=== PATIENT | female | born 1960 | race Caucasian/White ===

== ENCOUNTER → 2016-10-26 | Outpatient (CLI) | payer BC ==
[~2016-10-26] MED LIST: ALBUAER2 INH; ATV5X PO; FLUT0.0529 NAE; IPRASOL4 INH; PRT/40 PO; RANI300T2 PO; SNG10 PO; SYMIN160 INH; TOLT1CAP6 PO
--- NOTE | 2016-10-27 05:29 | PAP/PSG TECHNICIAN REPORT ---
[facility] Line Cook Polysomnogram Report Study name: None Report date: 10/27/2016 Study date: 10/26/2016 Referring Physician: Noah Mayes M.D. Name: JOSEPHINE, RODERICK SULEMAN Interpreting Physician: Jeb Mayes M.D. Date of : 1960 Line Cook: LATIA Bird. Sex: Female Age: 56 StudyType: PSG PAP Weight: 196 lbs Height: 56 years, Height 5' 2" Neck Circum:13.25inches BMI: 35.84 Medications: Hydrodiuril 25mg, Deltasone 10mg, Augmentin 876-125mg, Ativan 0.5mg, Singulair 10mg, Pulmicort Respules 0.5mg/2ml, Duoneb 2.5-0.5mg/3ml, Pyridium 200mg, Symbicort 80-4.5mcg/act, Zantac 300mg, Ventolin HFA 108mcg/act, Flonace 50mcg/act, Claritin 10mg Patient History Study started on room air with 4cwp cpap in room 38. 56 yr old female here tonigh tfor a new titration study. She has a HST that had an ALEX of 10.5 with hypoxemia. Her ESS=11/24. Neck circ=13.25inches. She has been using auto cpap at home for the last 4 weeks and brought her Dreamware nasal cushion system by [employer] to use for titration. Parameters Monitored NPSG: E1-M2, E2-M1, Fp1-M2, Fp2-M1, F3-M2, F4-M2, F4-M1, C3-M2, C4-M2, C4-M1, O1-M2, O2-M2, O2-M1, T3-M2, T4-M1, P3-M2, P4-M1, CHIN1, CHIN2, HR, EKG, Legs, PFLOW, SNOR, FLOW, CFLOW, Tidal Volume, THOR, ABDO, SpO2, PLTH, CPRESS, ETCO2 Wave, ETCO2, pH Sleep Architecture Sleep Stages Time at Lights Off 10:07:53 PM STAGES Time (min.) TST (%) Time at Lights On 5:24:23 AM Wake 104.0 -- Total Recording Time (TRT) 436.00 min. N1 37.5 11 Total Sleep Period (TSP) 420.5 min. N2 145.0 44 Total Sleep Time (TST) 332.0min. N3 75.5 23 Awake Time 104.0 min. REM 74.0 22 Wake after Sleep Onset 89.5 min. Sleep Efficiency (SE) 76 % Sleep Onset Latency (GREGOR) 15.0 min. Number of Stage 1 Shifts None Awakenings 29 Stage Changes 131 Number of REM periods 6 REM 74.0 22 REM Latency 234.0 min. NREM 258.0 78 Body Position Analysis Supine Right Left Side Prone Vertical Total Sleep Time (min.) 18.4 14.5 317.5 332.00 0.0 0.0 Total Sleep Time (%) 0% 4% 96% 100 0% N/A% Total Sleep Time REM (min.) 0.0 1.5 72.5 None 0.0 0.0 Total Sleep Time NREM (min.) 0.0 13.0 245.0 None 0.0 0.0 Intermittent Wake (min.) 18.4 22.2 63.4 None 0.0 0.0 Total Sleep Period (%) 1% None None None None None Arousals Myoclonus (PLM) * Events Count Index Events Count Index Spontaneous 19 3 Events Awake (PLMW) 189 109.0 Respiratory 2 0.5 Events Asleep w/ Arousal (PLMA) 44 8.0 PLM 43 8 Events Asleep w/o Arousal (PLMS) 119 21.5 Snoring 6 1 Total Asleep 163 29.5 Total 70 13 Total 352 48 Respiratory Analysis * CA OA MA CH H RERA Total Count 2 2 1 0 2 1 7 Index 0.4 0.4 0.2 0 0.4 0 1.4 Mean Duration 17.1 11.7 21.3 0.00 27.4 22.4 19.5 Longest Duration 18.7 11.9 21.3 0.00 21.3 22.4 28.0 Respiratory Event Summary Total Supine ~Supine Right Left Prone REM NREM Apneas Count 5 N/A 5 0 5 N/A 1 4 Index 0.9 N/A 1 0.0 0.9 N/A 1 1 Hypopneas (4% Desat) Count 2 N/A 2 0 2 N/A 0 2 Index 0.4 N/A 0 0.0 0.4 N/A 0.0 0.5 Apneas & All Hypopneas Count 7 N/A 7 0 7 N/A 1 6 Index 1.3 N/A 1 0 1 N/A 0.8 1.4 Respiratory Events (Slot Key Person+All Hyp+RERA) Count 7 N/A 8 0 8 N/A 1 6 Index 1.4 N/A 1 0.0 1.5 N/A 0.8 1.6 Respiratory Related Arousal Count 2 N/A 3 0 3 N/A 0 3 Index 0.5 N/A 1 0 1 N/A 0 1 Snoring Analysis Supine Right Left Prone REM NREM Total Snore duration 7.0 min Snores count N/A 25 284 N/A 6 303 309 Snore mean duration 1.4 Sec Snores index N/A 103 54 N/A 4.9 70.5 55.8 TST with snoring (%) 2.1% Desaturation Event Summary: Minimum %SpO2 Event Count Mean/Min/Max Duration(sec.) Desaturation Index % Time In Bed > 90 18 25.3 / 8.5 / 60.0 8.3 30.7 86 - 90 4 16.7 / 5.3 / 41.8 0.8 69.3 81 - 85 0 N/A 0.0 0.0 76 - 80 0 N/A 0.0 0.0 71 - 75 0 N/A 0.0 0.0 66 - 70 0 N/A 0.0 0.0 61 - 65 0 N/A 0.0 0.0 56 - 60 0 N/A 0.0 0.0 51 - 55 0 N/A 0.0 0.0 < 50 0 N/A 0.0 0.0 Total REM NREM Awake <50% 0.0 min. 0.0 min. 0.0 min. 0.0 min. 51 - 60% 0.0 min. 0.0 min. 0.0 min. 0.0 min. 61 - 70% 0.0 min. 0.0 min. 0.0 min. 0.0 min. 71 - 80% 0.0 min. 0.0 min. 0.0 min. 0.0 min. 81 - 90% 294.1 min. 68.0 min. 195.0 min. 31.1 min. 91 - 100% 130.4 min. 4.5 min. 61.4 min. 64.5 min. Average 90 89 90 91 Minimum SpO2 81 86 86 81 Desaturation Event Index 2.8 0.0 1.4 8.1 # Desat. Events below 89% 4 N/A 1 3 Time(%) with Saturation below 89% 14.1 2.4 9.8 1.9 Time(min.) with Saturation below 89% 59.7 10.1 41.5 8.1 Time (mins) REM (mins) NREM (mins) % of TST SpO2 Below 90% 4 N/A N4 46.2 SpO2 Below 88% 0 0 0 3 Heart Rate Analysis Min (bpm) Max (bpm) Average (bpm) Awake 53 141 68 NREM 49 127 61 REM 49 69 58 Overall 49 127 60 Supplemental O2 Values Minimum O2 level: None Value Start Time End Time Line Cook Comments Mrs. Henderson slept in the right, left, supine and prone positions. No cardiac arrhythmia or PLM's noted. No bruxism noted. CPAP was initiated at +4 CMH2O and up-titrated to a level of +8 CMH2O. She still had hypoxemia but was on a setting of +8CMH2O for only 96 minutes (not an OPTIMAL pressure). She brought her own mask to use for titration. She awoke to use the restroom 1 time during the night. She stated that she slept a little worse than usual. The final report will be interpreted and signed by a sleep physician. The completed physician report will then be placed in the patient medical record. Therapy Event: Therapy (cm H20) 4 5 6 8 Total Time at Pressure (min.) 204.7 36.8 95.3 99.2 TST at Pressure (min.) 117.2 35.8 82.8 96.2 # Periods 1 1 1 1 Sleep Onset (min.) 15.0 0.0 0.0 0.0 REM Onset (min.) N/A N/A 7.5 53.2 Sleep Efficiency % 57 97 86 97 Wakefulness (%) 42.7 2.7 13.1 3.0 Wakefulness (min.) 87.5 1.0 12.5 3.0 NREM 1 (%) 12.9 4.1 5.2 4.5 NREM 1 (min.) 26.5 1.5 5.0 4.5 NREM 2 (%) 32.1 29.2 21.3 48.6 NREM 2 (min.) 65.7 10.8 20.3 48.2 NREM 3 (%) 12.2 64.0 6.2 21.2 NREM 3 (min.) 25.0 23.5 6.0 21.0 REM (%) 0.0 0.0 54.0 22.7 REM (min.) 0.0 0.0 51.5 22.5 # Arousals 49 6 7 8 Arousal Index 25.1 10.1 5.1 5.0 # Snore 198 88 12 11 Snore Index 101.3 147.5 8.7 6.9 AHI 1.0 0.0 2.2 1.2 AHI Supine N/A N/A N/A N/A AHI Non-Supine 1.0 0.0 2.2 1.2 NREM AHI 1.0 0.0 5.8 0.8 REM AHI N/A N/A 0.0 2.7 RDI 1.5 0.0 2.2 1.2 # Obstructive 1 0 1 0 # Central Ap 0 0 0 2 # Mixed 0 0 1 0 # Hypopneas 1 0 1 0 RERAS 1 0 0 0 Total Respiratory Events 3 0 3 2 Time Below SpO2 89.00% (min.) 1.1 5.0 17.5 28.1 Mean NREM SpO2 (%) 90 89 89 89 Mean REM SpO2 (%) N/A N/A 89 90 Mean Sleep SpO2 (%) 90 89 89 89 Min NREM SpO2 (%) 88 88 86 87 Min REM SpO2 (%) N/A N/A 86 88 Position Supine (min.) 0.0 0.0 0.0 0.0 Position Non-supine (min.) 117.2 35.8 82.8 96.2 LM Index Sleep 58.3 23.5 13.8 10.0 LM Index NREM 58.3 23.5 13.4 9.0 LM Index REM N/A N/A 14.0 13.3 Mean Heart Rate (bpm) 65 60 58 57 Min Heart Rate (bpm) 52 54 49 49
--- NOTE | 2016-11-21 12:42 | POLYSOMNOGRAPH REPORT ---
REFERRING PERSON: Dr. Ligia Mayes. BROOMMAKING SUPERVISOR: Carissa Pruitt. Ms. Henderson is a 56-year-old female sent for a CPAP titration study. She had a home sleep test that showed an ALEX of 10.5 with hypoxemia. Her Biddle sleepiness scale score on the evening of this study is 11. BMI is 35.84. She is using a Dream[employer]ear nasal pillow mask by [employer] for her titration. Following the technical and digital specifications of the [employer] (AASM) a standard diagnostic polysomnogram was performed monitoring EEG, EOG, EMG (chin and leg deviations), oxygen saturation, body position, digital video, respiratory effort and airflow. The sleep Stage and event scoring was based on the AASM Manual for the Scoring of Sleep and Associated Events 2007 edition. Apneas are defined as a drop in the peak thermal sensor excursion by >90% of baseline for at least 10 seconds. Hypopneas were scored using the 4% oxygen desaturation rule (4A-[employer]) and a decrease in the nasal pressure excursions by >30% of baseline for at least 10 seconds. Respiratory effort-related arousal (RERA's) is defined as a sequence of breaths lasting at least 10 seconds characterized by increasing respiratory effort or flattening of the nasal pressure waveform leading to an arousal from sleep when the sequence of breaths does not meet criteria for an apnea or hypopnea. Apnea Hypopnea index (AHI) is defined as the number of apneas and hypopneas occurring in an hour of sleep. Respiratory disturbance index (RDI) is defined as the number of apneas, hypopneas, and RERA's occurring in an hour of sleep. Ms. Kinney total sleep period time was 420.5 minutes. Total sleep time was 332 minutes. Sleep efficiency was 76%. Latency to sleep onset was 15 minutes with wake after sleep onset of 89.5 minutes. She spent 11% of that time in N1 sleep, 44% in N2 sleep and 23% in N3 sleep. REM latency was 234 minutes. Total REM sleep time was 74 minutes or 22% of total sleep time. There were 70 cortical arousals from sleep. 19 of these arousals were spontaneous, 2 were due to respiratory events, 43 were due to periodic limb movements and 6 were due to snoring. There were 163 periodic limb movements noted on this test. Limb movement index was 29.5. Limb movement with arousal index was 8.0. During this titration, there were 2 central apneas, 2 obstructive apneas and 1 mixed apnea. There were 2 hypopneas and 1 RERA. Apnea-hypopnea index was 1.3. 309 snoring events were recorded. Total sleep time with snoring was 2.1%. Mean saturation was 90%. Lowest recorded saturation was 81%. Saturations were less than 89% for 59.7 minutes of recorded time. There was no cardiac ectopy noted on this study. Heart rates ranged from a low of 49 beats per minute to a high of 127 beats per minute during sleep. This patient was titrated from a CPAP pressure of 4 to a CPAP pressure of 8 over the course of the night. Increasing pressures were needed to prevent apneas, hypopneas and arousals. She was observed on a pressure of 8 for 96.2 minutes of recorded time. 22.5 of those minutes were spent in non-supine REM sleep. AHI and RDI on this pressure were both 1.2. However, she continued to have nocturnal hypoxemia. Saturations were less than 89 for 28.1 minutes of recorded time. IMPRESSION AND PLAN: Suboptimal CPAP titration study in this patient with known obstructive sleep apnea. I would recommend that she be placed on CPAP at a pressure of 8. It appears that she will also need oxygen supplementation. This patient should have an NPO on CPAP at 8 to determine whether or not she would require oxygen supplementation. This could be added if nocturnal hypoxemia is confirmed.
== END | disposition home or self-care (01) ==
LOC: C.NEUR 20:00
PROVIDERS: ATTEND Family Medicine
DX: G47.33 Obstructive sleep apnea (adult) (pediatric) (principal); G47.34 Idiopathic sleep related nonobstructive alveolar hypoventilation

== ENCOUNTER 2020-05-11 13:15 | Inpatient (IN) ==
[2020-05-11] MEDS ORDERED: DEXAMETHASONE SOD INJ 10 MG/ML VIAL IV ONE (14:23)
--- NOTE | 2020-05-11 14:52 | Emergency Department Note ---
History of Present Illness General Chief complaint: Illness Stated complaint: +COVID,SENT FOR CXR,HX OF LUNG ISSUES Time Seen by Provider: 05/11/20 13:54 History of Present Illness Patient is a 59-year-old female with past medical history significant for asthma, allergies, GERD, and overactive bladder, who presents the emergency department for evaluation of shortness of breath that started yesterday after being diagnosed with Covid 2 weeks ago. Patient relates that her symptoms started around 04/24, with sinus and nasal congestion, headache, fatigue, nausea, vomiting and diarrhea. She thought that she had a sinus infection. She tested positive for Covid on 04/29. She has been isolating at home. Other than ongoing nausea, anorexia and diarrhea, she has been feeling well until yesterday. She does have a history of asthma, has been using her Symbicort and Ventolin during her illness. Yesterday she began to notice a dry, nonproductive cough, and increased shortness of breath. She does have a pulse ox probe at home, she has been monitoring her pulse ox during the course of her illness, and started to notice oxygen saturations running in the low 90s to upper 80s. The lowest reading she had at home was 85%. She does have a CPAP machine but has not been wearing it since her illness, she was told that she needs new tubing from the device company. She does not have home oxygen. The patient called her primary care provider and had a telephone visit with them today, it was their recommendation that she come to the hospital for evaluation, as she may be "dehydrated, and need a chest x-ray." The patient has not had any fevers. She denies any chest pain. She does report a history of an asthma exacerbation with respiratory failure which required intubation in 2014. Home Medications Medication Instructions Recorded Confirmed Type albuterol sulfate 2 puff INHALATION QID PRN 05/11/20 05/11/20 History budesonide-formoterol [Symbicort] 2 puff INHALATION AMPM 05/11/20 05/11/20 History famotidine 0 mg PO DAILY 05/11/20 05/11/20 History lorazepam 0.5 mg PO TID PRN 05/11/20 05/11/20 History montelukast 10 mg PO QPM 05/11/20 05/11/20 History Allergies Allergy/AdvReac Type Severity Reaction Status Date / Time Sulfa (Sulfonamide Allergy Mild hives Verified 05/11/20 15:23 Antibiotics) Past Med/Surg History Medical History (Updated 05/11/20 @ 17:11 by Campos Lovett) Asthma Environmental and seasonal allergies GERD (gastroesophageal reflux disease) Overactive bladder PNA (pneumonia) Respiratory arrest Respiratory failure, acute Surgical History (Updated 05/11/20 @ 14:51 by Campos Lovett) History of cholecystectomy Social History Smoking Status: Former smoker Tobacco Type: Cigarettes Current Living Situation: Alone current occupational status: employed Feels Safe at Home: Yes Review of Systems A total of 10 systems reviewed and were otherwise negative Physical Exam Vital Signs Vital Signs - 24 hr 05/11/20 13:47 05/11/20 14:30 05/11/20 15:28 Temperature 36.6 C Temperature Source Temporal Artery Scan Pulse Rate 75 72 Pulse Rate from SpO2 Sensor 71 Respiratory Rate 20 22 Respiratory Effort / Characteristics Non-Labored Spontaneous Respiratory Depth Normal Respiratory Pattern Regular Blood Pressure 139/84 Blood Pressure Mean 102 Blood Pressure Position Sitting Pulse Oximetry 88 L 88 L 92 Oxygen Delivery Method Room Air Room Air Nasal Cannula Sepsis Recent Fever Within 48 Hours No Sepsis New/Unexplained Change in Mental Status N/A Sepsis Action Taken by Nursing No Action Required Oxygen Flow Rate - Titration 2 Pulse Oximetry Post Tiitration 96 05/11/20 15:30 05/11/20 15:42 05/11/20 15:43 Temperature Temperature Source Pulse Rate 71 76 75 Pulse Rate from SpO2 Sensor 71 76 74 Respiratory Rate 20 19 17 Respiratory Effort / Characteristics Respiratory Depth Respiratory Pattern Blood Pressure 150/75 H Blood Pressure Mean 94 Blood Pressure Position Pulse Oximetry 94 93 92 Oxygen Delivery Method Sepsis Recent Fever Within 48 Hours Sepsis New/Unexplained Change in Mental Status Sepsis Action Taken by Nursing Oxygen Flow Rate - Titration Pulse Oximetry Post Tiitration 05/11/20 16:00 05/11/20 16:30 05/11/20 17:00 Temperature Temperature Source Pulse Rate 72 78 72 Pulse Rate from SpO2 Sensor 71 78 73 Respiratory Rate 22 17 23 Respiratory Effort / Characteristics Respiratory Depth Respiratory Pattern Blood Pressure 144/82 H 136/74 Blood Pressure Mean 96 83 Blood Pressure Position Pulse Oximetry 94 95 93 Oxygen Delivery Method Sepsis Recent Fever Within 48 Hours Sepsis New/Unexplained Change in Mental Status Sepsis Action Taken by Nursing Oxygen Flow Rate - Titration Pulse Oximetry Post Tiitration CONSTITUTIONAL: Patient is a well-appearing 59-year-old female who is awake and alert and sitting semiupright on the gurney in no acute distress. Oxygen saturation on room air was 88% in triage, she is 96% on 2 L by nasal cannula. EYES: Pupils equal, round, reactive to light and accommodation. EOMs intact without nystagmus. Sclera are anicteric. ENT: Tympanic membranes intact, with normal landmarks. External canals are clear. Oral and nasopharynx are clear. Mucous membranes are moist, no lesions, tongue and gums appear normal. NECK: No bruits auscultated. Supple without lymphadenopathy. No thyromegaly. No meningeal signs. Full active range of motion without discomfort. CARDIOVASCULAR: Regular rate and rhythm, with normal S1 and S2, no murmur or gallop or rub is heard. Peripheral pulses easy to palpable. RESPIRATORY: Breath sounds equal and clear to auscultation without wheezes, rales, or rhonchi heard. Full and equal chest expansion without accessory muscle use or retractions. GI: Bowel sounds are present. Abdomen is soft, nontender, nondistended. No organomegaly. No pulsatile masses. No guarding or rebound. MUSCULOSKELETAL: Full range of motion of extremities x 4 with good strength. No cyanosis, edema, joint tenderness or swelling. No deformity. INTEGUMENTARY: No lesions or rash, normal skin turgor. NEUROLOGICAL: Alert, oriented, and cooperative. Cranial nerves, sensation and strength grossly intact. Pupils round, equal, and react to light, EOMs are full. LYMPH: No lymphadenopathy. Course Course The patient was seen and assessed as above. Old records were reviewed. She presents the emergency department for increased shortness of breath and low oxygen saturations at home after being diagnosed with Covid 2 weeks ago. She notes a history of asthma as well. On exam, she is hypoxic, requiring 2 L of oxygen by nasal cannula. Patient history and presentation were reviewed with Dr. Rodriguez and ED work-up was agreed upon. IV lock was initiated. Laboratory studies were collected. She was hydrated with normal saline solution. She was treated with Decadron 6 mg IV. CBC with differential, sed rate, coags, D-dimer, CMP, lactate, magnesium, troponin, C-reactive protein, pro calcitonin and urinalysis were ordered. Chest x-ray and chest CT were performed. EKG was performed and was as noted below. Laboratory studies noted a normal white count of 8400. Bandemia noted, no left shift. She is not anemic. Sed rate minimally elevated at 33, CRP 7.09. Coags are within normal limits. D-dimer is the upper limits of normal at 450. Electrolytes are without significant abnormality. Renal functions are normal. Transaminases are not elevated. Troponin is negative x1. Procalcitonin is within normal limits. Urine is clear. Lactic acid was hemolyzed and is recollected. It is pending at the time of dictation. Chest x-ray notes mixed interstitial and alveolar opacities of the mid and lower lung zones consistent with a multifocal pneumonia. Chest CT is negative for PE, notes mild emphysematous changes, and moderate multifocal groundglass airspace space opacities consistent with a viral pneumonia. Stable pulmonary nodules are noted. Laboratory and diagnostic imaging studies were reviewed with attending physician, and discussed with the patient. She was reassessed multiple times via telephone during her ED stay. ED work-up was discussed with her at length. Admission/observation was discussed with her due to her underlying lung disease, and hypoxia. She was in agreement. Consultation was placed with the [facility]. Patient was discussed with PHOEBE Avila, and will be evaluated by their team for further care. Administered Medications Discontinued Medications Dexamethasone (Dexamethasone Sod Inj 10 Mg/Ml Vial) 6 mg IV NOW ONE Stop: 05/11/20 14:24 Last Admin: 05/11/20 15:39 Dose: 6 mg Documented by: [id number] Sodium Chloride (Nss 1000ml) 1,000 mls @ 999 mls/hr IV .Q1H1M BECKA Stop: 05/11/20 17:11 Last Admin: 05/11/20 16:52 Dose: 999 mls/hr Documented by: [id number] Ioversol (Optiray 320 125ml) 120 ml IV ONCE ONE Stop: 05/11/20 16:34 Last Admin: 05/11/20 16:33 Dose: 120 ml Documented by: [id number] Medical Decision Making Differential Diagnosis Differential diagnosis includes acute myocardial infarction, acute coronary syndrome, myocarditis, pericarditis, pulmonary embolism, pneumonia, pneumothorax, cardiomyopathy, congestive heart failure, anemia, COPD/asthma ex acerbation, bronchitis, pleurisy, among others. Medical Records Attestation: I reviewed the patient's medical records. Home Medications Current Medication List: was personally reviewed by me Laboratory Data Attestation: I reviewed the patient's lab results. Result diagrams: 05/11/20 15:25 05/11/20 15:25 Lab Results 05/11/20 05/11/20 05/11/20 Range/Units 15:25 15:25 15:25 WBC 8.46 (4.8-10.8) K/uL RBC 4.60 (4.2-5.4) M/uL Hgb 14.4 (12.0-16.0) g/dL Hct 41.7 (37-47) % MCV 90.7 (80-100) fL MCH 31.3 (25-34) pg MCHC 34.5 (32-36) g/dL RDW Std Deviation 46.2 (36.4-46.3) fL RDW Coeff of Norma 14.0 (11.5-14.5) % Plt Count 306 (130-400) K/uL MPV 11.9 H (7.4-10.4) fL Immature Gran % (Auto) 0.4 % Neut % (Auto) 68.8 % Lymph % (Auto) 19.7 % [place] % (Auto) 10.5 % Eos % (Auto) 0.4 % Baso % (Auto) 0.2 % Neut # (Auto) 5.82 (1.4-6.5) K/uL Lymph # (Auto) 1.67 (1.2-3.4) K/uL [place] # (Auto) 0.89 H (0.11-0.59) K/uL Eos # (Auto) 0.03 (0-0.5) K/uL Baso # (Auto) 0.02 (0-0.2) K/uL Immature Gran # (Auto) 0.03 H (0.00-0.02) K/uL ESR (0-21) mm/hr PT 10.2 (9.0-12.0) Seconds INR 1.0 (0.9-1.1) APTT 29.6 (21.0-31.0) Seconds PTT Ratio 1.1 D-Dimer 450 (0-500) ug/L FEU Sodium 135 L (136-145) mmol/L Potassium 4.0 (3.5-5.1) mmol/L Chloride 101 (98-107) mmol/L Carbon Dioxide 30 (21-32) mmol/L Anion Gap 4.0 (3-11) BUN 11 (7-18) mg/dl Creatinine 0.70 (0.6-1.2) mg/dl Est Cr Clr Drug Dosing 89.3 ml/min Est GFR ( Amer) 108.4 Est GFR (Non-Af Amer) 93.5 BUN/Creatinine Ratio 16.1 (10-20) Glucose 93 (70-99) mg/dl Lactate (0.4-2.0) mmol/L Calcium 9.0 (8.5-10.1) mg/dl Magnesium 1.9 (1.8-2.4) mg/dl Total Bilirubin 0.4 (0.2-1) mg/dl AST 35 (15-37) U/L ALT 53 (12-78) U/L Alkaline Phosphatase 96 (45-117) U/L Troponin I < 0.015 (0-0.045) ng/ml C-Reactive Protein 7.09 H (0-0.29) mg/dl Total Protein 7.5 (6.4-8.2) gm/dl Albumin 3.3 L (3.4-5.0) gm/dl Globulin 4.2 H (2.5-4.0) gm/dl Albumin/Globulin Ratio 0.8 L (0.9-2) Procalcitonin (0-0.5) ng/ml Urine Color Urine Appearance (Clear) Urine pH (4.5-7.5) Ur Specific [place] (1.000-1.030) Urine Protein (Negative) Urine Glucose (UA) (Negative) Urine Ketones (Negative) Urine Blood (Negative) Urine Nitrite (Negative) Urine Bilirubin (Negative) Urine Urobilinogen (Negative) Ur Leukocyte Esterase (Negative) Blood Type Antibody Screen 05/11/20 05/11/20 05/11/20 Range/Units 15:25 15:25 15:25 WBC (4.8-10.8) K/uL RBC (4.2-5.4) M/uL Hgb (12.0-16.0) g/dL Hct (37-47) % MCV (80-100) fL MCH (25-34) pg MCHC (32-36) g/dL RDW Std Deviation (36.4-46.3) fL RDW Coeff of Norma (11.5-14.5) % Plt Count (130-400) K/uL MPV (7.4-10.4) fL Immature Gran % (Auto) % Neut % (Auto) % Lymph % (Auto) % [place] % (Auto) % Eos % (Auto) % Baso % (Auto) % Neut # (Auto) (1.4-6.5) K/uL Lymph # (Auto) (1.2-3.4) K/uL [place] # (Auto) (0.11-0.59) K/uL Eos # (Auto) (0-0.5) K/uL Baso # (Auto) (0-0.2) K/uL Immature Gran # (Auto) (0.00-0.02) K/uL ESR (0-21) mm/hr PT (9.0-12.0) Seconds INR (0.9-1.1) APTT (21.0-31.0) Seconds PTT Ratio D-Dimer (0-500) ug/L FEU Sodium (136-145) mmol/L Potassium (3.5-5.1) mmol/L Chloride (98-107) mmol/L Carbon Dioxide (21-32) mmol/L Anion Gap (3-11) BUN (7-18) mg/dl Creatinine (0.6-1.2) mg/dl Est Cr Clr Drug Dosing ml/min Est GFR ( Amer) Est GFR (Non-Af Amer) BUN/Creatinine Ratio (10-20) Glucose (70-99) mg/dl Lactate (0.4-2.0) mmol/L Calcium (8.5-10.1) mg/dl Magnesium (1.8-2.4) mg/dl Total Bilirubin (0.2-1) mg/dl AST (15-37) U/L ALT (12-78) U/L Alkaline Phosphatase (45-117) U/L Troponin I (0-0.045) ng/ml C-Reactive Protein (0-0.29) mg/dl Total Protein (6.4-8.2) gm/dl Albumin (3.4-5.0) gm/dl Globulin (2.5-4.0) gm/dl Albumin/Globulin Ratio (0.9-2) Procalcitonin < 0.05 (0-0.5) ng/ml Urine Color Urine Appearance (Clear) Urine pH (4.5-7.5) Ur Specific [place] (1.000-1.030) Urine Protein (Negative) Urine Glucose (UA) (Negative) Urine Ketones (Negative) Urine Blood (Negative) Urine Nitrite (Negative) Urine Bilirubin (Negative) Urine Urobilinogen (Negative) Ur Leukocyte Esterase (Negative) Blood Type O Positive Antibody Screen NEGATIVE 05/11/20 05/11/20 Range/Units 15:25 15:25 WBC (4.8-10.8) K/uL RBC (4.2-5.4) M/uL Hgb (12.0-16.0) g/dL Hct (37-47) % MCV (80-100) fL MCH (25-34) pg MCHC (32-36) g/dL RDW Std Deviation (36.4-46.3) fL RDW Coeff of Norma (11.5-14.5) % Plt Count (130-400) K/uL MPV (7.4-10.4) fL Immature Gran % (Auto) % Neut % (Auto) % Lymph % (Auto) % [place] % (Auto) % Eos % (Auto) % Baso % (Auto) % Neut # (Auto) (1.4-6.5) K/uL Lymph # (Auto) (1.2-3.4) K/uL [place] # (Auto) (0.11-0.59) K/uL Eos # (Auto) (0-0.5) K/uL Baso # (Auto) (0-0.2) K/uL Immature Gran # (Auto) (0.00-0.02) K/uL ESR 33 H (0-21) mm/hr PT (9.0-12.0) Seconds INR (0.9-1.1) APTT (21.0-31.0) Seconds PTT Ratio D-Dimer (0-500) ug/L FEU Sodium (136-145) mmol/L Potassium (3.5-5.1) mmol/L Chloride (98-107) mmol/L Carbon Dioxide (21-32) mmol/L Anion Gap (3-11) BUN (7-18) mg/dl Creatinine (0.6-1.2) mg/dl Est Cr Clr Drug Dosing ml/min Est GFR ( Amer) Est GFR (Non-Af Amer) BUN/Creatinine Ratio (10-20) Glucose (70-99) mg/dl Lactate (0.4-2.0) mmol/L Calcium (8.5-10.1) mg/dl Magnesium (1.8-2.4) mg/dl Total Bilirubin (0.2-1) mg/dl AST (15-37) U/L ALT (12-78) U/L Alkaline Phosphatase (45-117) U/L Troponin I (0-0.045) ng/ml C-Reactive Protein (0-0.29) mg/dl Total Protein (6.4-8.2) gm/dl Albumin (3.4-5.0) gm/dl Globulin (2.5-4.0) gm/dl Albumin/Globulin Ratio (0.9-2) Procalcitonin (0-0.5) ng/ml Urine Color Yellow Urine Appearance Clear (Clear) Urine pH 6.5 (4.5-7.5) Ur Specific [place] 1.019 (1.000-1.030) Urine Protein Negative (Negative) Urine Glucose (UA) Negative (Negative) Urine Ketones Negative (Negative) Urine Blood Negative (Negative) Urine Nitrite Negative (Negative) Urine Bilirubin Negative (Negative) Urine Urobilinogen Negative (Negative) Ur Leukocyte Esterase Negative (Negative) Blood Type Antibody Screen Imaging Data Attestation: I personally reviewed and interpreted this imaging study as follows: Radiologist's Impression: XR chest 1V portable HISTORY: 59 years-old Female COVID, ASTHMA, SOB acute shortness of breath. COVID Positive. COMPARISON: Chest radiograph 09/29/2014 TECHNIQUE: Portable AP view of the chest FINDINGS: Cardiac silhouette is mildly enlarged, unchanged. No pneumothorax, or large pleural effusion. Intermixed interstitial and alveolar opacities are noted within the mid and lower lung zones. Degenerative changes of the shoulders and spine. IMPRESSION: Mixed interstitial and alveolar opacities of the mid and lower lung zones are suggestive of multifocal pneumonia. CHEST CTA for PULMONARY ARTERIES CT DOSE: 523.12 mGycm HISTORY: COVID +, ASTHMA, shortness of breath, HYPOXIC TECHNIQUE: Multiaxial CT images of the chest were performed following the intravenous administration of contrast to evaluate the pulmonary arteries. Maximal intensity projection images were also obtained. A dose lowering technique was utilized adhering to the principles of ALARA. COMPARISON STUDY: Chest CTA 08/01/2014. FINDINGS: Normal caliber thoracic aorta with no evidence for dissection. No pleural or pericardial effusions. The heart is normal in size. No filling defects within the pulmonary arteries to suggest pulmonary embolus. Mild mediastinal bilateral hilar lymphadenopathy. This is likely reactive. Limited views of the upper abdomen demonstrate normal liver and spleen. Normal esophagus. No fractures within the visualized osseous structures. No pneumothorax. The central airways are patent. Mild emphysema. Moderate multifocal patchy groundglass airspace opacities are seen scattered throughout the lungs. This most pronounced within the mid to lower lung zones. There is a 6 mm nodule within the right lower lobe on image 102. This previously measured 5 mm. Stable 4 mm nodule within the left lower lobe on image 111. Additional subcentimeter nodules in the prior studies are likely obscured by the groundglass airspace opacities. IMPRESSION: 1. No evidence for pulmonary embolus. 2. Moderate multifocal groundglass airspace opacities consistent with a viral pneumonia. 3. Mild emphysema. 4. A few subcentimeter pulmonary nodules. Dominant nodule within the right lower lobe measures 6 mm. This previously measured 5 mm. Recommend one year chest CT follow-up to ensure stability. ECG Data Attestation: I personally reviewed and interpreted this ECG as follows: Indication: + SOB/dyspnea Rate (beats per minute): 70 Rhythm: + normal sinus ECG Loving: + Normal ECG ST segments: + Normal ST segments; no ST elevation Comparison ECG Date: from (July 2014) Change: no significant change MDM Narrative See ED Course. Impression & Plan Pneumonia due to 2019 novel coronavirus, Hypoxia Discharge Plan Visit Data Chief Complaint: Illness Stated Complaint: +COVID,SENT FOR CXR,HX OF LUNG ISSUES ED Provider: Bryon Rodriguez ED Midlevel Provider: Campos Lovett Discharge Problem: Pneumonia due to 2019 novel coronavirus, Hypoxia Patient Disposition: Being Evaluated by Hospitalist Forms Stand Alone Forms: My [facility] Prescriptions Prescriptions: No Action montelukast 10 mg tablet 10 mg PO QPM RF: 0 albuterol sulfate 90 mcg/actuation Hfa Aerosol Inhaler 2 puff INHALATION QID PRN (Reason: Shortness Of Breath Or Wheezing) RF: 0 budesonide-formoterol [Symbicort] 160-4.5 mcg/actuation HFA aerosol inhaler 2 puff INHALATION AMPM RF: 0 lorazepam 0.5 mg tablet 0.5 mg PO TID PRN (Reason: Anxiety) RF: 0 famotidine 10 mg Tablet 0 mg PO DAILY RF: 0 Referrals Referrals: Kyara Cota DO [Primary Care Provider] -
--- NOTE | 2020-05-11 15:34 | XRay Report ---
XR chest 1V portable HISTORY: 59 years-old Female COVID, ASTHMA, SOB acute shortness of breath. COVID Positive. COMPARISON: Chest radiograph 09/29/2014 TECHNIQUE: Portable AP view of the chest FINDINGS: Cardiac silhouette is mildly enlarged, unchanged. No pneumothorax, or large pleural effusion. Intermi xed interstitial and alveolar opacities are noted within the mid and lower lung zones. Degenerative c hanges of the shoulders and spine. IMPRESSION: Mixed interstitial and alveolar opacities of the mid and lower lung zones are suggestive of multifocal pneumonia. ACT 112: Negative or not required by law. The above report was generated using voice recognition software. It may contain grammatical, syntax o r spelling errors. Electronically signed by: Adrien Gil M.D. 05/11/2020 3:33 PM
[2020-05-11 15:45] LABS: Appearance Urine Clear (Clear); Bilirubin Urine Negative (Negative); Blood Urine Negative (Negative); Color Urine Yellow; Glucose Urine UA Negative (Negative); Ketones Urine Negative (Negative); Leukocyte Esterase Urine Negative (Negative); Nitrite Urine Negative (Negative); Protein Urine Negative (Negative); Specific Gravity Urine 1.019 (1.000-1.030); Urobilinogen Urine Negative (Negative); pH Urine 6.5 (4.5-7.5)
[2020-05-11 15:51] LABS: D Dimer 450 ug/L FEU (0-500); Partial Thromboplastin Ratio 1.1; Partial Thromboplastin Time 29.6 Seconds (21.0-31.0); Prothrombin Time 10.2 Seconds (9.0-12.0)
[2020-05-11 15:56] LABS: Basophils # (auto) 0.02 K/uL (0-0.2); Basophils % (auto) 0.2 %; Eosinophils # (auto) 0.03 K/uL (0-0.5); Eosinophils % (auto) 0.4 %; Hematocrit (blood only) 41.7 % (37-47); Hemoglobin 14.4 g/dL (12.0-16.0); Immature Granulocytes # (auto) 0.03 K/uL (0.00-0.02); Immature Granulocytes % (auto) 0.4 %; Lymphocytes # (auto) 1.67 K/uL (1.2-3.4); Lymphocytes % (auto) 19.7 %; Mean Corpuscular Hemoglobin 31.3 pg (25-34); Mean Corpuscular Hgb Conc 34.5 g/dL (32-36); Mean Corpuscular Volume 90.7 fL (80-100); Mean Platelet Volume 11.9 fL (7.4-10.4); Monocytes # (auto) 0.89 K/uL (0.11-0.59); Monocytes % (auto) 10.5 %; Neutrophils # (auto) 5.82 K/uL (1.4-6.5); Neutrophils % (auto) 68.8 %; Platelet Count 306 K/uL (130-400); RDW Standard Deviation 46.2 fL (36.4-46.3); White Blood Count 8.46 K/uL (4.8-10.8)
[2020-05-11] MEDS ORDERED: SODIUM CHLORIDE 0.9% 1000ML 1,000 ML IV SCH ×2 (16:11→16:15)
[2020-05-11 16:20] LABS: Alanine Aminotransferase 53 U/L (12-78); Albumin Globulin Ratio 0.8 (0.9-2); Albumin Level 3.3 gm/dl (3.4-5.0); Alkaline Phosphatase 96 U/L (45-117); BUN Creatinine Ratio 16.1 (10-20); Bilirubin,Total 0.4 mg/dl (0.2-1); Blood Urea Nitrogen 11 mg/dl (7-18); C Reactive Protein 7.09 mg/dl (0-0.29); Carbon Dioxide 30 mmol/L (21-32); Chloride 101 mmol/L (98-107); Creatinine Clr Calc Pharmacy 89.3 ml/min; Est GFR (African American) 108.4; Est GFR (Non-African American) 93.5; Globulin 4.2 gm/dl (2.5-4.0); Glucose 93 mg/dl (70-99); Sodium 135 mmol/L (136-145); Total Protein 7.5 gm/dl (6.4-8.2); Troponin I < 0.015 ng/ml (0-0.045)
[2020-05-11] MEDS ORDERED: OPTIRAY 320 125ml IV ONE (16:33)
[2020-05-11 16:36] LABS: Aspartate Aminotransferase 35 U/L (15-37); Magnesium 1.9 mg/dl (1.8-2.4)
--- NOTE | 2020-05-11 16:55 | CT Scan Report ---
CHEST CTA for PULMONARY ARTERIES CT DOSE: 523.12 mGycm HISTORY: COVID +, ASTHMA, shortness of breath, HYPOXIC TECHNIQUE: Multiaxial CT images of the chest were performed following the intravenous administration of contrast to evaluate the pulmonary arteries. Maximal intensity projection images were also obtaine d. A dose lowering technique was utilized adhering to the principles of ALARA. COMPARISON STUDY: Chest CTA 08/01/2014. FINDINGS: Normal caliber thoracic aorta with no evidence for dissection. No pleural or pericardial ef fusions. The heart is normal in size. No filling defects within the pulmonary arteries to suggest pul monary embolus. Mild mediastinal bilateral hilar lymphadenopathy. This is likely reactive. Limited vi ews of the upper abdomen demonstrate normal liver and spleen. Normal esophagus. No fractures within t he visualized osseous structures. No pneumothorax. The central airways are patent. Mild emphysema. Mo derate multifocal patchy groundglass airspace opacities are seen scattered throughout the lungs. This most pronounced within the mid to lower lung zones. There is a 6 mm nodule within the right lower lo be on image 102. This previously measured 5 mm. Stable 4 mm nodule within the left lower lobe on imag e 111. Additional subcentimeter nodules in the prior studies are likely obscured by the groundglass a irspace opacities. IMPRESSION: 1. No evidence for pulmonary embolus. 2. Moderate multifocal groundglass airspace opacities consistent with a viral pneumonia. 3. Mild emphysema. 4. A few subcentimeter pulmonary nodules. Dominant nodule within the right lower lobe measures 6 mm. This previously measured 5 mm. Recommend one year chest CT follow-up to ensure stability. ACT 112: Negative or not required by law. Electronically signed by: Nestor Hudson M.D. 05/11/2020 4:54 PM
[2020-05-11] MEDS ORDERED: BENZONATATE 100 MG CAPSULE PO STA (17:46)
--- NOTE | 2020-05-11 17:56 | History & Physical Report ---
Date of Service May 11, 2020 Assessment & Plan (1) Pneumonia due to 2019 novel coronavirus: (2) Hypoxia: This is a 59-year-old female who has significant past medical history of COPD/asthma, TAMMI on CPAP, seasonal allergies, anxiety, pulmonary nodule, history of respiratory failure requiring ventilation secondary to pneumonia who presents to ED secondary to shortness of breath and chest tightness x2 days. Ddimer 450 ESR 33 CRP 7.09 Procalcitonin < 0.05 Chest CTA/CXR: Moderate multifocal groundglass airspace opacities consistent with a viral pneumonia. IV dexamethasone 6mg daily (up to 10 days) Remdesevir 200mg x 1 now; 100mg daily x 4 days Given duration of illness start empiric tx for CAP with oral doxycycline 100mg bid and Rocephin 2g daily convalescent plasma discussed - given duration of illness pt wishes to not pursue this option monitor renal fxn/lfts incentive spirometry encourage self proning q2h continue symbicort, prn albuterol lovenox for dvt ppx (3) COPD (chronic obstructive pulmonary disease): continue symbicort, prn albuterol tx as above (4) Pulmonary nodule, right: repeat CT in 1 year, currently dominant nodule 5mm, previously 6mm hx of tobacco abuse (5) DVT prophylaxis: SQ Lovenox 40mg Q12 Disposition: admit to med/surg Follow up: PCP Dr. Cota upon discharge I, Haja Machado MD, seen and examined the pt, and edited the note above. Care coordinated with Nelia Forbes PA-C. History of Present Illness Chief Complaint: Shortness of breath and chest tightness x1 day. Primary Care Provider: Kyara Cota DO This is a 59-year-old female who has significant past medical history of COPD/asthma, TAMMI on CPAP, seasonal allergies, anxiety, pulmonary nodule, history of respiratory failure requiring ventilation secondary to pneumonia who presents to ED secondary to shortness of breath and chest tightness x1 day. Patient tested positive for novel coronavirus on 04/29/2020. Unsure how she contracted virus as, "I have been taking all the precautions." Sx started around 04/24/20. For the past 3 weeks she has been experiencing symptoms of fatigue, sinus congestion, persistent headache, nausea and diarrhea. Yesterday she developed dry cough, increasingly shortness of breath and chest tightness. Throughout illness she has been compliant with Symbicort. Just yesterday she started using her Ventolin at the recommendation of PCP. She denies any fever, chills, sweats, lightheadedness, dizziness, syncope, chest pain, palpitations, hemoptysis, emesis, abdominal pain, dysuria, increased urgency or frequency with urination, melena or hematochezia. Overall her appetite has been, "so-so." Denies loss of taste or smell. Her cough is dry. She has been using Mucinex [id number] for cough and APAP/ibuprofen for headache. She does have pulse ox at home and has noticed her o2 sats in high 80s, low 90s today. Her lowest reading was 85%. She does have TAMMI but has been intolerant to CPAP due to sinus congestion and malfunction of equipment. In ED chest x-ray and chest CTA revealed multifocal pneumonia. She was started on IV dexamethasone 6 mg. She is requiring 2 L of O2 via NC. Allergies Allergy/AdvReac Type Severity Reaction Status Date / Time Sulfa (Sulfonamide Allergy Mild hives Verified 05/11/20 15:23 Antibiotics) Home Medications Medication Instructions Recorded Confirmed Type albuterol sulfate 2 puff INHALATION QID PRN 05/11/20 05/11/20 History budesonide-formoterol [Symbicort] 2 puff INHALATION AMPM 05/11/20 05/11/20 History famotidine 20 mg PO DAILY 05/11/20 05/11/20 History lorazepam 0.5 mg PO TID PRN 05/11/20 05/11/20 History montelukast 10 mg PO QPM 05/11/20 05/11/20 History Past Med/Surg History Medical History (Updated 05/11/20 @ 18:07 by Nelia Forbes PA-C) Asthma Environmental and seasonal allergies GERD (gastroesophageal reflux disease) Overactive bladder PNA (pneumonia) Respiratory arrest Respiratory failure, acute Surgical History (Updated 05/11/20 @ 18:03 by Nelia Forbes PA-C) History of bilateral breast reduction surgery History of brain surgery 12/03/2007 stereotactic computer-assisted volumetric procedure History of cholecystectomy History of colonoscopy Diverticulosis, 10/11/2017 History of esophagogastroduodenoscopy (EGD) History of 2 superficial ulcers 04/15/2011, biopsies negative for H. pylori History of nasal surgery Nasal sinus endoscopy with frontal sinus exploration, ethmoidectomy, maxillary sinusocopy; also history of septoplasty History of reversal of tubal ligation History of tubal ligation Family History Mother Lung cancer, Onset Age: 84 Father Myocardial infarction, Onset Age: 70 Social History (Updated 05/11/20 @ 18:04 by Nelia Forbes PA-C) Smoking Status: Former smoker Tobacco Type: Cigarettes packs per day: 1; Years Smoked: 20; Cigarettes Per Day: 24; Smoking End Date: 18 years ago; Number of Years Since Quit: 17; Hx Alcohol Use: Yes Alcohol type: beer, wine and hard liquor Alcohol Intake Frequency: Monthly or Less Hx Substance Use: No Preferred Language: [place] Islander Communication Ability: Effective Beer Runner Required: No Beliefs That Will Affect Care: None Current Living Situation: Alone current occupational status: employed Other Information That Helps Us Care for You: No Feels Safe at Home: Yes Safety Concerns: Feels Safe At This Time Assistive Devices: Oxygen - Continuous Review of Systems Review of Systems: All systems reviewed & are unremarkable except as noted in HPI & below Physical Exam Constitutional: WD/WN, vitals as above Eyes: PERRL, conjunctivae normal, anicteric sclerae ENMT: external ear and nose normal, oropharynx normal Neck: trachea midline, no thyromegaly normal visual inspection Respiratory: normal respiratory effort, lungs clear to auscultation no respiratory distress and no labored breathing Auscultation: + rhonchi (mild); no crackles and no rales requiring 2L of suppl. O2 Cardiovascular: RRR, no murmur, no edema Chest (Breasts): Chest: normal inspection of chest Gastrointestinal (Abdomen): Inspection/Auscultation: abdomen normal to inspection and normal bowel sounds; abdomen not distended and no abdominal edema Percussion/Palpation: abdomen soft; abdomen nontender, no guarding and abdomen not rigid Musculoskeletal: no cyanosis or clubbing, extremities motor strength 5/5 Head/Neck/Chest: normocephalic, head atraumatic and neck supple Skin: no rashes, warm and dry Neurologic: PERRL, EOMI, accommodation nl, no face palsy, no dysarthria Psychiatric: A+Ox3, euthymic affect Genitourinary: no CVA tenderness Lymphatic: no lymphedema Results & Data Results & Data ([facility]) Vital Signs (Past 12 Hours) Vital Signs Temp Pulse Resp BP Pulse Ox 05/11/20 17:00 72 23 93 05/11/20 16:30 78 17 136/74 95 05/11/20 16:00 72 22 144/82 H 94 05/11/20 15:43 75 17 92 05/11/20 15:42 76 19 150/75 H 93 05/11/20 15:30 71 20 94 05/11/20 15:28 72 22 92 05/11/20 14:30 88 L 05/11/20 13:47 36.6 C 75 20 139/84 88 L Laboratory Results COVID + [facility] 04/29/2020 Diagnostic Findings CXR: IMPRESSION: Mixed interstitial and alveolar opacities of the mid and lower lung zones are suggestive of multifocal pneumonia. Chest CTA: IMPRESSION: 1. No evidence for pulmonary embolus. 2. Moderate multifocal groundglass airspace opacities consistent with a viral pneumonia. 3. Mild emphysema. 4. A few subcentimeter pulmonary nodules. Dominant nodule within the right lower lobe measures 6 mm. This previously measured 5 mm. Recommend one year chest CT follow-up to ensure stability. Medications Administered Sodium Chloride (Nss 1000ml) 1,000 mls @ 250 mls/hr IV .Q4H [facility] Stop: 06/10/20 16:14 Last Admin: 05/11/20 16:15 Dose: 250 mls/hr Documented by: [id number] Discontinued Medications Dexamethasone (Dexamethasone Sod Inj 10 Mg/Ml Vial) 6 mg IV NOW ONE Stop: 05/11/20 14:24 Last Admin: 05/11/20 15:39 Dose: 6 mg Documented by: [id number] Sodium Chloride (Nss 1000ml) 1,000 mls @ 999 mls/hr IV .Q1H1M [facility] Stop: 05/11/20 17:11 Last Admin: 05/11/20 16:52 Dose: 999 mls/hr Documented by: [id number] Ioversol (Optiray 320 125ml) 120 ml IV ONCE ONE Stop: 05/11/20 16:34 Last Admin: 05/11/20 16:33 Dose: 120 ml Documented by: [id number] ECG Rate (beats per minute): 70 Rhythm: normal sinus COVID-19 Results Results COVID-19 Lab Results: RBC 4.61 M/uL (4.2-5.4) 05/12/20 WBC 4.20 K/uL (4.8-10.8) L 05/12/20 Hgb 14.1 g/dL (12.0-16.0) 05/12/20 Hct 41.8 % (37-47) 05/12/20 Plt Count 273 K/uL (130-400) 05/12/20 Neutrophils (%) (Auto) 56.0 % 05/12/20 Lymphocytes (%) (Auto) 30.0 % 05/12/20 Monocytes # (Auto) 0.56 K/uL (0.11-0.59) 05/12/20 Eosinophils # (Auto) 0.00 K/uL (0-0.5) 05/12/20 Immature Granulocyte % (Auto) 0.5 % 05/12/20 Neutrophils # (Auto) 2.35 K/uL (1.4-6.5) 05/12/20 Lymphocytes # (Auto) 1.26 K/uL (1.2-3.4) 05/12/20 Monocytes # (Auto) 0.56 K/uL (0.11-0.59) 05/12/20 Eosinophils # (Auto) 0.00 K/uL (0-0.5) 05/12/20 Basophils # (Auto) 0.01 K/uL (0-0.2) 05/12/20 Immature Granulocyte # (Auto) 0.02 K/uL (0.00-0.02) 05/12/20 Na 140 mmol/L (136-145) 05/12/20 K 4.1 mmol/L (3.5-5.1) 05/12/20 Cl 108 mmol/L (98-107) H 05/12/20 CO2 29 mmol/L (21-32) 05/12/20 Anion Gap 3.0 (3-11) 05/12/20 BUN 10 mg/dl (7-18) 05/12/20 Creatinine 0.57 mg/dl (0.6-1.2) L 05/12/20 BUN/Creatinine Ratio 18.0 (10-20) 05/12/20 Glucose Level 110 mg/dl (70-99) H 05/12/20 Ca 8.4 mg/dl (8.5-10.1) L 05/12/20 Total Bilirubin 0.4 mg/dl (0.2-1) 05/11/20 AST/SGOT 35 U/L (15-37) 05/11/20 ALT/SGPT 53 U/L (12-78) 05/11/20 Alkaline Phosphatase 96 U/L (45-117) 05/11/20 Total Protein 7.5 gm/dl (6.4-8.2) 05/11/20 Albumin 3.3 gm/dl (3.4-5.0) L 05/11/20 Globulin 4.2 gm/dl (2.5-4.0) H 05/11/20 Albumin/Globulin Ratio 0.8 (0.9-2) L 05/11/20 Troponin I < 0.015 ng/ml (0-0.045) 05/11/20 CRP 7.09 mg/dl (0-0.29) H 05/11/20 Procalcitonin < 0.05 ng/ml (0-0.5) 05/12/20 D-Dimer 450 ug/L FEU (0-500) 05/11/20 PTT 29.6 Seconds (21.0-31.0) 05/11/20 INR 1.0 (0.9-1.1) 05/11/20 Chest X-Ray 05/11/20 Code Status & VTE Plan Code Status Full Code VTE Prophylaxis Plan VTE Prophylaxis will be ordered: Yes
[2020-05-11] MEDS ORDERED: MAGNESIUM HYDROXIDE SUSP 30 ML UDC PO PRN (19:12)
[2020-05-11] MEDS ORDERED: ALBUTEROL HFA 8 GM INHALER INH PRN (19:12)
[2020-05-11] MEDS ORDERED: ALUMINUM/MAGNESIUM SUSP 30 ML UDC PO PRN (19:12)
[2020-05-11] MEDS ORDERED: LORazepam 0.5 MG TAB PO PRN (19:12)
[2020-05-11] MEDS ORDERED: POLYETHYLENE (MIRALAX) 17 GM PACK PO PRN (19:12)
[2020-05-11] MEDS ORDERED: ONDANSETRON INJ 2 MG/ML 2 ML VIAL IV PRN (19:12)
[2020-05-11] MEDS ORDERED: REMDESIVIR 200 MG in SODIUM CHLORIDE 0.9% 210 ML IV ONE (20:00)
[2020-05-11] MEDS: MONTELUKAST SODIUM 10 MG TABLET PO SCH (20:47)
[2020-05-11] MEDS: PANTOprazole 40 MG TAB PO SCH (20:47)
[2020-05-11] MEDS: ACETAMINOPHEN 325 MG TAB PO PRN (20:47)
[2020-05-11] MEDS: DOXYCYCLINE HYCLATE 100 MG CAP PO SCH (20:48)
[2020-05-11] MEDS: ENOXAPARIN INJ 40 MG/0.4 ML SYR SQ SCH (20:48)
[2020-05-11] MEDS: BENZONATATE 100 MG CAPSULE PO SCH (20:49)
[2020-05-11] MEDS: cefTRIAXone SODIUM 2,000 MG in DEXTROSE 5% 50 ML IV SCH (22:53)
[2020-05-11] MEDS: SODIUM CHLORIDE 0.9% 10ML FLUSH IV SCH (22:54)
[2020-05-12] MEDS: BENZONATATE 100 MG CAPSULE PO SCH ×3 (04:05→20:59)
[2020-05-12 06:18] LABS: Basophils # (auto) 0.01 K/uL (0-0.2); Basophils % (auto) 0.2 %; Hematocrit (blood only) 41.8 % (37-47); Hemoglobin 14.1 g/dL (12.0-16.0); Immature Granulocytes # (auto) 0.02 K/uL (0.00-0.02); Immature Granulocytes % (auto) 0.5 %; Lymphocytes # (auto) 1.26 K/uL (1.2-3.4); Mean Corpuscular Hemoglobin 30.6 pg (25-34); Mean Corpuscular Hgb Conc 33.7 g/dL (32-36); Mean Corpuscular Volume 90.7 fL (80-100); Mean Platelet Volume 10.5 fL (7.4-10.4); Monocytes # (auto) 0.56 K/uL (0.11-0.59); Monocytes % (auto) 13.3 %; Neutrophils # (auto) 2.35 K/uL (1.4-6.5); Platelet Count 273 K/uL (130-400); RDW Coefficient of Variation 13.7 % (11.5-14.5); RDW Standard Deviation 45.7 fL (36.4-46.3); Red Blood Count 4.61 M/uL (4.2-5.4)
[2020-05-12 06:48] LABS: Calcium 8.4 mg/dl (8.5-10.1); Creatinine Clr Calc Pharmacy 107.9 ml/min; Est GFR (Non-African American) 100.1; Magnesium 2.2 mg/dl (1.8-2.4); Potassium 4.1 mmol/L (3.5-5.1)
[2020-05-12] MEDS: PANTOprazole 40 MG TAB PO SCH (08:03)
[2020-05-12] MEDS: FAMOTIDINE 20 MG TAB PO SCH (08:04)
[2020-05-12] MEDS: DOXYCYCLINE HYCLATE 100 MG CAP PO SCH ×2 (08:04→20:59)
[2020-05-12] MEDS: FLUTICASONE/VILANTEROL 200/25MCG 14 PUFFS/INHALER INH SCH (08:05)
[2020-05-12] MEDS: dexAMETHasone 6 MG in SYRINGE 0 ML IV SCH (08:05)
[2020-05-12] MEDS: ENOXAPARIN INJ 40 MG/0.4 ML SYR SQ SCH ×2 (10:49→20:58)
--- NOTE | 2020-05-12 11:19 | Electrocardiogram Report ---
Test Reason : Blood Pressure : / mmHG Vent. Rate : 070 BPM Atrial Rate : 070 BPM P-R Int : 180 ms QRS Dur : 080 ms QT Int : 370 ms P-R-T Axes : 058 020 021 degrees QTc Int : 399 ms Normal sinus rhythm Septal infarct , age undetermined Abnormal ECG When compared with ECG of 02-AUG-2014 06:51, Septal infarct is now Present Confirmed by Cody Potter ([id number]) on 05/12/2020 11:18:49 AM Referred By: Confirmed By:Cody Potter
[2020-05-12] MEDS: ACETAMINOPHEN 325 MG TAB PO PRN (13:45)
--- NOTE | 2020-05-12 15:48 | Hospitalist Progress Note ---
Date of Service May 12, 2020 Assessment & Plan (1) Pneumonia due to 2019 novel coronavirus: (2) Hypoxia: Acute hypoxic respiratory failure secondary to COVID 19 pna This is a 59-year-old female who has significant past medical history of COPD/asthma, TAMMI on CPAP, seasonal allergies, anxiety, pulmonary nodule, history of respiratory failure requiring ventilation secondary to pneumonia who presents to ED secondary to shortness of breath and chest tightness x2 days. Ddimer 450 ESR 33 CRP 7.09 Procalcitonin < 0.05 Chest CTA/CXR: Moderate multifocal groundglass airspace opacities consistent with a viral pneumonia. IV dexamethasone 6mg daily (up to 10 days) Remdesevir 200mg x 1 on admission; continue 100mg daily x 4 days Given duration of illness start empiric tx for CAP with oral doxycycline 100mg bid and Rocephin 2g daily convalescent plasma discussed - given duration of illness pt wishes to not pursue this option monitor renal fxn/lfts incentive spirometry encourage self proning q2h continue symbicort, prn albuterol lovenox for dvt ppx (3) COPD (chronic obstructive pulmonary disease): continue symbicort, prn albuterol tx as above (4) Pulmonary nodule, right: repeat CT in 1 year, currently dominant nodule 5mm, previously 6mm hx of tobacco abuse (5) DVT prophylaxis: SQ Lovenox 40mg Q12hrs Disposition: med/surg Follow up: PCP Dr. Cota upon discharge Admission and Anticipated Discharge Date Admission Date: May 11, 2020 Subjective Pt seen in follow up of COVID 19 pna. She is sitting up in bed in [facility], currently using 4L of suppl. O2. She reports she is laying on her stomach and on her sides as often as she can. Denies fever, chills, chest pain, abd. pain, n/v. Review of Systems Review of Systems: All systems reviewed & are unremarkable except as noted in HPI & below Constitutional: no fever and no chills Respiratory: + cough and + dyspnea Cardiovascular: no chest pain, no palpitations and no edema Gastrointestinal: no abdominal pain, no nausea and no vomiting Physical Exam Constitutional: WD/WN, vitals as above Eyes: PERRL, conjunctivae normal, anicteric sclerae ENMT: external ear and nose normal, oropharynx normal Neck: trachea midline, no thyromegaly normal visual inspection Respiratory: normal respiratory effort, lungs clear to auscultation no respiratory distress and no labored breathing Auscultation: + rhonchi (mild); no crackles and no rales currently using 4 L of suppl. O2 Cardiovascular: RRR, no murmur, no edema Chest (Breasts): Chest: normal inspection of chest Gastrointestinal (Abdomen): Inspection/Auscultation: abdomen normal to inspection and normal bowel sounds; abdomen not distended and no abdominal edema Percussion/Palpation: abdomen soft; abdomen nontender, no guarding and abdo men not rigid Musculoskeletal: no cyanosis or clubbing, extremities motor strength 5/5 Head/Neck/Chest: normocephalic, head atraumatic and neck supple Skin: no rashes, warm and dry Neurologic: PERRL, EOMI, accommodation nl, no face palsy, no dysarthria Psychiatric: A+Ox3, euthymic affect Genitourinary: no CVA tenderness Lymphatic: no lymphedema Results & Data Results & Data ([facility]) Vital Signs (Past 12 Hours) Vital Signs Temp Pulse Resp BP Pulse Ox 05/12/20 15:43 36.5 C 69 16 126/76 91 05/12/20 07:34 36.6 C 62 20 113/73 91 05/12/20 04:06 63 18 94 Laboratory Results 05/12/20 05/12/20 05/12/20 Range/Units 06:04 06:04 06:04 WBC 4.20 L (4.8-10.8) K/uL RBC 4.61 (4.2-5.4) M/uL Hgb 14.1 (12.0-16.0) g/dL Hct 41.8 (37-47) % MCV 90.7 (80-100) fL MCH 30.6 (25-34) pg MCHC 33.7 (32-36) g/dL RDW Std Deviation 45.7 (36.4-46.3) fL RDW Coeff of Norma 13.7 (11.5-14.5) % Plt Count 273 (130-400) K/uL MPV 10.5 H (7.4-10.4) fL Immature Gran % (Auto) 0.5 % Neut % (Auto) 56.0 % Lymph % (Auto) 30.0 % [place] % (Auto) 13.3 % Eos % (Auto) 0.0 % Baso % (Auto) 0.2 % Neut # (Auto) 2.35 (1.4-6.5) K/uL Lymph # (Auto) 1.26 (1.2-3.4) K/uL [place] # (Auto) 0.56 (0.11-0.59) K/uL Eos # (Auto) 0.00 (0-0.5) K/uL Baso # (Auto) 0.01 (0-0.2) K/uL Immature Gran # (Auto) 0.02 (0.00-0.02) K/uL ESR (0-21) mm/hr PT (9.0-12.0) Seconds INR (0.9-1.1) APTT (21.0-31.0) Seconds PTT Ratio D-Dimer (0-500) ug/L FEU Sodium 140 (136-145) mmol/L Potassium 4.1 (3.5-5.1) mmol/L Chloride 108 H (98-107) mmol/L Carbon Dioxide 29 (21-32) mmol/L Anion Gap 3.0 (3-11) BUN 10 (7-18) mg/dl Creatinine 0.57 L (0.6-1.2) mg/dl Est Cr Clr Drug Dosing 107.9 ml/min Est GFR ( Amer) 116.0 Est GFR (Non-Af Amer) 100.1 BUN/Creatinine Ratio 18.0 (10-20) Glucose 110 H (70-99) mg/dl Lactate (0.4-2.0) mmol/L Calcium 8.4 L (8.5-10.1) mg/dl Magnesium 2.2 (1.8-2.4) mg/dl Total Bilirubin (0.2-1) mg/dl AST (15-37) U/L ALT (12-78) U/L Alkaline Phosphatase (45-117) U/L Troponin I (0-0.045) ng/ml C-Reactive Protein (0-0.29) mg/dl Total Protein (6.4-8.2) gm/dl Albumin (3.4-5.0) gm/dl Globulin (2.5-4.0) gm/dl Albumin/Globulin Ratio (0.9-2) Procalcitonin < 0.05 (0-0.5) ng/ml Blood Type Antibody Screen 05/11/20 05/11/20 05/11/20 Range/Units 16:56 15:25 15:25 WBC (4.8-10.8) K/uL RBC (4.2-5.4) M/uL Hgb (12.0-16.0) g/dL Hct (37-47) % MCV (80-100) fL MCH (25-34) pg MCHC (32-36) g/dL RDW Std Deviation (36.4-46.3) fL RDW Coeff of Norma (11.5-14.5) % Plt Count (130-400) K/uL MPV (7.4-10.4) fL Immature Gran % (Auto) % Neut % (Auto) % Lymph % (Auto) % [place] % (Auto) % Eos % (Auto) % Baso % (Auto) % Neut # (Auto) (1.4-6.5) K/uL Lymph # (Auto) (1.2-3.4) K/uL [place] # (Auto) (0.11-0.59) K/uL Eos # (Auto) (0-0.5) K/uL Baso # (Auto) (0-0.2) K/uL Immature Gran # (Auto) (0.00-0.02) K/uL ESR 33 H (0-21) mm/hr PT (9.0-12.0) Seconds INR (0.9-1.1) APTT (21.0-31.0) Seconds PTT Ratio D-Dimer (0-500) ug/L FEU Sodium (136-145) mmol/L Potassium (3.5-5.1) mmol/L Chloride (98-107) mmol/L Carbon Dioxide (21-32) mmol/L Anion Gap (3-11) BUN (7-18) mg/dl Creatinine (0.6-1.2) mg/dl Est Cr Clr Drug Dosing ml/min Est GFR ( Amer) Est GFR (Non-Af Amer) BUN/Creatinine Ratio (10-20) Glucose (70-99) mg/dl Lactate 1.1 (0.4-2.0) mmol/L Calcium (8.5-10.1) mg/dl Magnesium (1.8-2.4) mg/dl Total Bilirubin (0.2-1) mg/dl AST (15-37) U/L ALT (12-78) U/L Alkaline Phosphatase (45-117) U/L Troponin I (0-0.045) ng/ml C-Reactive Protein (0-0.29) mg/dl Total Protein (6.4-8.2) gm/dl Albumin (3.4-5.0) gm/dl Globulin (2.5-4.0) gm/dl Albumin/Globulin Ratio (0.9-2) Procalcitonin (0-0.5) ng/ml Blood Type Antibody Screen 05/11/20 05/11/20 05/11/20 Range/Units 15:25 15:25 15:25 WBC (4.8-10.8) K/uL RBC (4.2-5.4) M/uL Hgb (12.0-16.0) g/dL Hct (37-47) % MCV (80-100) fL MCH (25-34) pg MCHC (32-36) g/dL RDW Std Deviation (36.4-46.3) fL RDW Coeff of Norma (11.5-14.5) % Plt Count (130-400) K/uL MPV (7.4-10.4) fL Immature Gran % (Auto) % Neut % (Auto) % Lymph % (Auto) % [place] % (Auto) % Eos % (Auto) % Baso % (Auto) % Neut # (Auto) (1.4-6.5) K/uL Lymph # (Auto) (1.2-3.4) K/uL [place] # (Auto) (0.11-0.59) K/uL Eos # (Auto) (0-0.5) K/uL Baso # (Auto) (0-0.2) K/uL Immature Gran # (Auto) (0.00-0.02) K/uL ESR (0-21) mm/hr PT (9.0-12.0) Seconds INR (0.9-1.1) APTT (21.0-31.0) Seconds PTT Ratio D-Dimer (0-500) ug/L FEU Sodium 135 L (136-145) mmol/L Potassium 4.0 (3.5-5.1) mmol/L Chloride 101 (98-107) mmol/L Carbon Dioxide 30 (21-32) mmol/L Anion Gap 4.0 (3-11) BUN 11 (7-18) mg/dl Creatinine 0.70 (0.6-1.2) mg/dl Est Cr Clr Drug Dosing 89.3 ml/min Est GFR ( Amer) 108.4 Est GFR (Non-Af Amer) 93.5 BUN/Creatinine Ratio 16.1 (10-20) Glucose 93 (70-99) mg/dl Lactate (0.4-2.0) mmol/L Calcium 9.0 (8.5-10.1) mg/dl Magnesium 1.9 (1.8-2.4) mg/dl Total Bilirubin 0.4 (0.2-1) mg/dl AST 35 (15-37) U/L ALT 53 (12-78) U/L Alkaline Phosphatase 96 (45-117) U/L Troponin I < 0.015 (0-0.045) ng/ml C-Reactive Protein 7.09 H (0-0.29) mg/dl Total Protein 7.5 (6.4-8.2) gm/dl Albumin 3.3 L (3.4-5.0) gm/dl Globulin 4.2 H (2.5-4.0) gm/dl Albumin/Globulin Ratio 0.8 L (0.9-2) Procalcitonin < 0.05 (0-0.5) ng/ml Blood Type O Positive Antibody Screen NEGATIVE 05/11/20 05/11/20 Range/Units 15:25 15:25 WBC 8.46 (4.8-10.8) K/uL RBC 4.60 (4.2-5.4) M/uL Hgb 14.4 (12.0-16.0) g/dL Hct 41.7 (37-47) % MCV 90.7 (80-100) fL MCH 31.3 (25-34) pg MCHC 34.5 (32-36) g/dL RDW Std Deviation 46.2 (36.4-46.3) fL RDW Coeff of Norma 14.0 (11.5-14.5) % Plt Count 306 (130-400) K/uL MPV 11.9 H (7.4-10.4) fL Immature Gran % (Auto) 0.4 % Neut % (Auto) 68.8 % Lymph % (Auto) 19.7 % [place] % (Auto) 10.5 % Eos % (Auto) 0.4 % Baso % (Auto) 0.2 % Neut # (Auto) 5.82 (1.4-6.5) K/uL Lymph # (Auto) 1.67 (1.2-3.4) K/uL [place] # (Auto) 0.89 H (0.11-0.59) K/uL Eos # (Auto) 0.03 (0-0.5) K/uL Baso # (Auto) 0.02 (0-0.2) K/uL Immature Gran # (Auto) 0.03 H (0.00-0.02) K/uL ESR (0-21) mm/hr PT 10.2 (9.0-12.0) Seconds INR 1.0 (0.9-1.1) APTT 29.6 (21.0-31.0) Seconds PTT Ratio 1.1 D-Dimer 450 (0-500) ug/L FEU Sodium (136-145) mmol/L Potassium (3.5-5.1) mmol/L Chloride (98-107) mmol/L Carbon Dioxide (21-32) mmol/L Anion Gap (3-11) BUN (7-18) mg/dl Creatinine (0.6-1.2) mg/dl Est Cr Clr Drug Dosing ml/min Est GFR ( Amer) Est GFR (Non-Af Amer) BUN/Creatinine Ratio (10-20) Glucose (70-99) mg/dl Lactate (0.4-2.0) mmol/L Calcium (8.5-10.1) mg/dl Magnesium (1.8-2.4) mg/dl Total Bilirubin (0.2-1) mg/dl AST (15-37) U/L ALT (12-78) U/L Alkaline Phosphatase (45-117) U/L Troponin I (0-0.045) ng/ml C-Reactive Protein (0-0.29) mg/dl Total Protein (6.4-8.2) gm/dl Albumin (3.4-5.0) gm/dl Globulin (2.5-4.0) gm/dl Albumin/Globulin Ratio (0.9-2) Procalcitonin (0-0.5) ng/ml Blood Type Antibody Screen Medications Administered Current Inpatient Medications Acetaminophen (Acetaminophen 325 Mg Tab) 650 mg PO Q4H PRN PRN Reason: pain/fever Stop: 06/10/20 19:11 Last Admin: 05/12/20 13:45 Dose: 650 mg Documented by: Al Hydrox/Mg Hydrox/Simethicone (Aluminum/Magnesium Susp 30 Ml Udc) 30 ml PO Q6H PRN PRN Reason: Dyspepsia Stop: 06/10/20 19:11 Last Admin: 05/12/20 13:45 Dose: 30 ml Documented by: Albuterol (Albuterol Hfa 8 Gm Inhaler) 2 puffs INH Q4R PRN PRN Reason: Shortness Of Breath Or Wheezing Stop: 06/10/20 19:11 Benzonatate (Benzonatate 100 Mg Capsule) 100 mg PO Q8H [facility] Stop: 06/10/20 19:59 Last Admin: 05/12/20 12:29 Dose: 100 mg Documented by: Doxycycline Hyclate (Doxycycline Hyclate 100 Mg Cap) 100 mg PO BID [facility] Stop: 05/18/20 20:59 Last Admin: 05/12/20 08:04 Dose: 100 mg Documented by: Enoxaparin Sodium (Enoxaparin Inj 40 Mg/0.4 Ml Syr) 40 mg SQ Q12H [facility] Stop: 06/10/20 20:59 Last Admin: 05/12/20 10:49 Dose: 40 mg Documented by: Famotidine (Famotidine 20 Mg Tab) 20 mg PO DAILY [facility] Stop: 06/11/20 08:59 Last Admin: 05/12/20 08:04 Dose: 20 mg Documented by: Fluticasone/Vilanterol (Fluticasone/Vilanterol 200/25mcg 14 Puffs/Inhaler) 1 puffs INH DAILY [facility]; Protocol Stop: 06/11/20 08:59 Last Admin: 05/12/20 08:05 Dose: 1 puffs Documented by: Dexamethasone 6 mg/ Syringe 1.5 mls @ 1 mls/min IV DAILY@0800 [facility] Stop: 06/11/20 07:59 Last Admin: 05/12/20 08:05 Dose: 1 mls/min Documented by: Ceftriaxone Sodium 2,000 mg/ (Dextrose) 70 mls @ 100 mls/hr IV Q24H [facility]; Protocol Stop: 05/18/20 19:59 Last Infusion: 05/11/20 23:38 Dose: Infused Documented by: Remdesivir 100 mg/ Sodium (Chloride) 250 mls @ 250 mls/hr IV Q24H [facility]; Protocol Stop: 05/15/20 20:59 Ibuprofen (Ibuprofen 200 Mg Tab) 200 mg PO Q6H PRN PRN Reason: Headache Stop: 06/10/20 19:11 Lorazepam (Lorazepam 0.5 Mg Tab) 0.5 mg PO TID PRN PRN Reason: Anxiety Stop: 06/10/20 19:11 Magnesium Hydroxide (Magnesium Hydroxide Susp 30 Ml Udc) 30 ml PO Q6H PRN PRN Reason: Constipation Stop: 06/10/20 19:11 Montelukast Sodium (Montelukast Sodium 10 Mg Tablet) 10 mg PO DAILY@2000 [facility] Stop: 06/10/20 19:59 Last Admin: 05/11/20 20:47 Dose: 10 mg Documented by: Ondansetron HCl (Ondansetron Inj 2 Mg/Ml 2 Ml Vial) 4 mg IV Q6H PRN PRN Reason: Nausea Stop: 06/10/20 19:11 Pantoprazole Sodium (Pantoprazole 40 Mg Tab) 40 mg PO DAILY [facility] Stop: 06/10/20 19:59 Last Admin: 05/12/20 08:03 Dose: 40 mg Documented by: Polyethylene Glycol (Polyethylene (Miralax) 17 Gm Pack) 17 gm PO DAILY PRN PRN Reason: Constipation Stop: 06/10/20 19:11 Sodium Chloride (Sodium Chloride 0.9% 10ml Flush) 30 ml IV Q24H [facility] Stop: 05/15/20 20:01 Last Admin: 05/11/20 22:54 Dose: 30 ml Documented by:
--- NOTE | 2020-05-12 16:02 | Hospitalist Progress Note ---
Date of Service May 12, 2020 Assessment & Plan (1) Pneumonia due to 2019 novel coronavirus: (2) Hypoxia: This is a 59-year-old female who has significant past medical history of COPD/asthma, TAMMI on CPAP, seasonal allergies, anxiety, pulmonary nodule, history of respiratory failure requiring ventilation secondary to pneumonia who presents to ED secondary to shortness of breath and chest tightness x2 days. Ddimer 450 ESR 33 CRP 7.09 Procalcitonin < 0.05 Chest CTA/CXR: Moderate multifocal groundglass airspace opacities consistent with a viral pneumonia. IV dexamethasone 6mg daily (up to 10 days) Remdesevir 200mg x 1 now; 100mg daily x 4 days Given duration of illness start empiric tx for CAP with oral doxycycline 100mg bid and Rocephin 2g daily convalescent plasma discussed - given duration of illness pt wishes to not pursue this option monitor renal fxn/lfts incentive spirometry encourage self proning q2h continue symbicort, prn albuterol lovenox for dvt ppx (3) COPD (chronic obstructive pulmonary disease): continue symbicort, prn albuterol tx as above (4) Pulmonary nodule, right: repeat CT in 1 year, currently dominant nodule 5mm, previously 6mm hx of tobacco abuse (5) DVT prophylaxis: SQ Lovenox 40mg Q12 Disposition: admit to med/surg Follow up: PCP Dr. Cota upon discharge Admission and Anticipated Discharge Date Admission Date: May 11, 2020 Subjective CANCEL THIS NOTE / created in error Physical Exam Constitutional: WD/WN, vitals as above Eyes: PERRL, conjunctivae normal, anicteric sclerae ENMT: external ear and nose normal, oropharynx normal Neck: trachea midline, no thyromegaly normal visual inspection Respiratory: normal respiratory effort, lungs clear to auscultation no respiratory distress and no labored breathing Auscultation: + rhonchi (mild); no crackles and no rales Cardiovascular: RRR, no murmur, no edema Chest (Breasts): Chest: normal inspection of chest Gastrointestinal (Abdomen): Inspection/Auscultation: abdomen normal to inspection and normal bowel sounds; abdomen not distended and no abdominal edema Percussion/Palpation: abdomen soft; abdomen nontender, no guarding and abdomen not rigid Musculoskeletal: no cyanosis or clubbing, extremities motor strength 5/5 Head/Neck/Chest: normocephalic, head atraumatic and neck supple Skin: no rashes, warm and dry Neurologic: PERRL, EOMI, accommodation nl, no face palsy, no dysarthria Psychiatric: A+Ox3, euthymic affect Genitourinary: no CVA tenderness Lymphatic: no lymphedema Results & Data Results & Data ([facility]) Vital Signs (Past 12 Hours) Vital Signs Temp Pulse Resp BP Pulse Ox 05/12/20 15:43 36.5 C 69 16 126/76 91 05/12/20 07:34 36.6 C 62 20 113/73 91 05/12/20 04:06 63 18 94 Laboratory Results 05/12/20 05/12/20 05/12/20 Range/Units 06:04 06:04 06:04 WBC 4.20 L (4.8-10.8) K/uL RBC 4.61 (4.2-5.4) M/uL Hgb 14.1 (12.0-16.0) g/dL Hct 41.8 (37-47) % MCV 90.7 (80-100) fL MCH 30.6 (25-34) pg MCHC 33.7 (32-36) g/dL RDW Std Deviation 45.7 (36.4-46.3) fL RDW Coeff of Norma 13.7 (11.5-14.5) % Plt Count 273 (130-400) K/uL MPV 10.5 H (7.4-10.4) fL Immature Gran % (Auto) 0.5 % Neut % (Auto) 56.0 % Lymph % (Auto) 30.0 % [place] % (Auto) 13.3 % Eos % (Auto) 0.0 % Baso % (Auto) 0.2 % Neut # (Auto) 2.35 (1.4-6.5) K/uL Lymph # (Auto) 1.26 (1.2-3.4) K/uL [place] # (Auto) 0.56 (0.11-0.59) K/uL Eos # (Auto) 0.00 (0-0.5) K/uL Baso # (Auto) 0.01 (0-0.2) K/uL Immature Gran # (Auto) 0.02 (0.00-0.02) K/uL ESR (0-21) mm/hr Sodium 140 (136-145) mmol/L Potassium 4.1 (3.5-5.1) mmol/L Chloride 108 H (98-107) mmol/L Carbon Dioxide 29 (21-32) mmol/L Anion Gap 3.0 (3-11) BUN 10 (7-18) mg/dl Creatinine 0.57 L (0.6-1.2) mg/dl Est Cr Clr Drug Dosing 107.9 ml/min Est GFR ( Amer) 116.0 Est GFR (Non-Af Amer) 100.1 BUN/Creatinine Ratio 18.0 (10-20) Glucose 110 H (70-99) mg/dl Lactate (0.4-2.0) mmol/L Calcium 8.4 L (8.5-10.1) mg/dl Magnesium 2.2 (1.8-2.4) mg/dl Total Bilirubin (0.2-1) mg/dl AST (15-37) U/L ALT (12-78) U/L Alkaline Phosphatase (45-117) U/L Troponin I (0-0.045) ng/ml C-Reactive Protein (0-0.29) mg/dl Total Protein (6.4-8.2) gm/dl Albumin (3.4-5.0) gm/dl Globulin (2.5-4.0) gm/dl Albumin/Globulin Ratio (0.9-2) Procalcitonin < 0.05 (0-0.5) ng/ml Blood Type Antibody Screen 05/11/20 05/11/20 05/11/20 Range/Units 16:56 15:25 15:25 WBC (4.8-10.8) K/uL RBC (4.2-5.4) M/uL Hgb (12.0-16.0) g/dL Hct (37-47) % MCV (80-100) fL MCH (25-34) pg MCHC (32-36) g/dL RDW Std Deviation (36.4-46.3) fL RDW Coeff of Norma (11.5-14.5) % Plt Count (130-400) K/uL MPV (7.4-10.4) fL Immature Gran % (Auto) % Neut % (Auto) % Lymph % (Auto) % [place] % (Auto) % Eos % (Auto) % Baso % (Auto) % Neut # (Auto) (1.4-6.5) K/uL Lymph # (Auto) (1.2-3.4) K/uL [place] # (Auto) (0.11-0.59) K/uL Eos # (Auto) (0-0.5) K/uL Baso # (Auto) (0-0.2) K/uL Immature Gran # (Auto) (0.00-0.02) K/uL ESR 33 H (0-21) mm/hr Sodium (136-145) mmol/L Potassium (3.5-5.1) mmol/L Chloride (98-107) mmol/L Carbon Dioxide (21-32) mmol/L Anion Gap (3-11) BUN (7-18) mg/dl Creatinine (0.6-1.2) mg/dl Est Cr Clr Drug Dosing ml/min Est GFR ( Amer) Est GFR (Non-Af Amer) BUN/Creatinine Ratio (10-20) Glucose (70-99) mg/dl Lactate 1.1 (0.4-2.0) mmol/L Calcium (8.5-10.1) mg/dl Magnesium (1.8-2.4) mg/dl Total Bilirubin (0.2-1) mg/dl AST (15-37) U/L ALT (12-78) U/L Alkaline Phosphatase (45-117) U/L Troponin I (0-0.045) ng/ml C-Reactive Protein (0-0.29) mg/dl Total Protein (6.4-8.2) gm/dl Albumin (3.4-5.0) gm/dl Globulin (2.5-4.0) gm/dl Albumin/Globulin Ratio (0.9-2) Procalcitonin (0-0.5) ng/ml Blood Type Antibody Screen 05/11/20 05/11/20 05/11/20 Range/Units 15:25 15:25 15:25 WBC (4.8-10.8) K/uL RBC (4.2-5.4) M/uL Hgb (12.0-16.0) g/dL Hct (37-47) % MCV (80-100) fL MCH (25-34) pg MCHC (32-36) g/dL RDW Std Deviation (36.4-46.3) fL RDW Coeff of Norma (11.5-14.5) % Plt Count (130-400) K/uL MPV (7.4-10.4) fL Immature Gran % (Auto) % Neut % (Auto) % Lymph % (Auto) % [place] % (Auto) % Eos % (Auto) % Baso % (Auto) % Neut # (Auto) (1.4-6.5) K/uL Lymph # (Auto) (1.2-3.4) K/uL [place] # (Auto) (0.11-0.59) K/uL Eos # (Auto) (0-0.5) K/uL Baso # (Auto) (0-0.2) K/uL Immature Gran # (Auto) (0.00-0.02) K/uL ESR (0-21) mm/hr Sodium 135 L (136-145) mmol/L Potassium 4.0 (3.5-5.1) mmol/L Chloride 101 (98-107) mmol/L Carbon Dioxide 30 (21-32) mmol/L Anion Gap 4.0 (3-11) BUN 11 (7-18) mg/dl Creatinine 0.70 (0.6-1.2) mg/dl Est Cr Clr Drug Dosing 89.3 ml/min Est GFR ( Amer) 108.4 Est GFR (Non-Af Amer) 93.5 BUN/Creatinine Ratio 16.1 (10-20) Glucose 93 (70-99) mg/dl Lactate (0.4-2.0) mmol/L Calcium 9.0 (8.5-10.1) mg/dl Magnesium 1.9 (1.8-2.4) mg/dl Total Bilirubin 0.4 (0.2-1) mg/dl AST 35 (15-37) U/L ALT 53 (12-78) U/L Alkaline Phosphatase 96 (45-117) U/L Troponin I < 0.015 (0-0.045) ng/ml C-Reactive Protein 7.09 H (0-0.29) mg/dl Total Protein 7.5 (6.4-8.2) gm/dl Albumin 3.3 L (3.4-5.0) gm/dl Globulin 4.2 H (2.5-4.0) gm/dl Albumin/Globulin Ratio 0.8 L (0.9-2) Procalcitonin < 0.05 (0-0.5) ng/ml Blood Type O Positive Antibody Screen NEGATIVE Medications Administered Current Inpatient Medications Acetaminophen (Acetaminophen 325 Mg Tab) 650 mg PO Q4H PRN PRN Reason: pain/fever Stop: 06/10/20 19:11 Last Admin: 05/12/20 13:45 Dose: 650 mg Documented by: Al Hydrox/Mg Hydrox/Simethicone (Aluminum/Magnesium Susp 30 Ml Udc) 30 ml PO Q6H PRN PRN Reason: Dyspepsia Stop: 06/10/20 19:11 Last Admin: 05/12/20 13:45 Dose: 30 ml Documented by: Albuterol (Albuterol Hfa 8 Gm Inhaler) 2 puffs INH Q4R PRN PRN Reason: Shortness Of Breath Or Wheezing Stop: 06/10/20 19:11 Benzonatate (Benzonatate 100 Mg Capsule) 100 mg PO Q8H [facility] Stop: 06/10/20 19:59 Last Admin: 05/12/20 12:29 Dose: 100 mg Documented by: Doxycycline Hyclate (Doxycycline Hyclate 100 Mg Cap) 100 mg PO BID [facility] Stop: 05/18/20 20:59 Last Admin: 05/12/20 08:04 Dose: 100 mg Documented by: Enoxaparin Sodium (Enoxaparin Inj 40 Mg/0.4 Ml Syr) 40 mg SQ Q12H [facility] Stop: 06/10/20 20:59 Last Admin: 05/12/20 10:49 Dose: 40 mg Documented by: Famotidine (Famotidine 20 Mg Tab) 20 mg PO DAILY [facility] Stop: 06/11/20 08:59 Last Admin: 05/12/20 08:04 Dose: 20 mg Documented by: Fluticasone/Vilanterol (Fluticasone/Vilanterol 200/25mcg 14 Puffs/Inhaler) 1 puffs INH DAILY [facility]; Protocol Stop: 06/11/20 08:59 Last Admin: 05/12/20 08:05 Dose: 1 puffs Documented by: Dexamethasone 6 mg/ Syringe 1.5 mls @ 1 mls/min IV DAILY@0800 [facility] Stop: 06/11/20 07:59 Last Admin: 05/12/20 08:05 Dose: 1 mls/min Documented by: Ceftriaxone Sodium 2,000 mg/ (Dextrose) 70 mls @ 100 mls/hr IV Q24H [facility]; Protocol Stop: 05/18/20 19:59 Last Infusion: 05/11/20 23:38 Dose: Infused Documented by: Remdesivir 100 mg/ Sodium (Chloride) 250 mls @ 250 mls/hr IV Q24H [facility]; Protocol Stop: 05/15/20 20:59 Ibuprofen (Ibuprofen 200 Mg Tab) 200 mg PO Q6H PRN PRN Reason: Headache Stop: 06/10/20 19:11 Lorazepam (Lorazepam 0.5 Mg Tab) 0.5 mg PO TID PRN PRN Reason: Anxiety Stop: 06/10/20 19:11 Magnesium Hydroxide (Magnesium Hydroxide Susp 30 Ml Udc) 30 ml PO Q6H PRN PRN Reason: Constipation Stop: 06/10/20 19:11 Montelukast Sodium (Montelukast Sodium 10 Mg Tablet) 10 mg PO DAILY@2000 [facility] Stop: 06/10/20 19:59 Last Admin: 05/11/20 20:47 Dose: 10 mg Documented by: Ondansetron HCl (Ondansetron Inj 2 Mg/Ml 2 Ml Vial) 4 mg IV Q6H PRN PRN Reason: Nausea Stop: 06/10/20 19:11 Pantoprazole Sodium (Pantoprazole 40 Mg Tab) 40 mg PO DAILY [facility] Stop: 06/10/20 19:59 Last Admin: 05/12/20 08:03 Dose: 40 mg Documented by: Polyethylene Glycol (Polyethylene (Miralax) 17 Gm Pack) 17 gm PO DAILY PRN PRN Reason: Constipation Stop: 06/10/20 19:11 Sodium Chloride (Sodium Chloride 0.9% 10ml Flush) 30 ml IV Q24H [facility] Stop: 05/15/20 20:01 Last Admin: 05/11/20 22:54 Dose: 30 ml Documented by:
[2020-05-12] MEDS ORDERED: FUROSEMIDE 20 MG in SYRINGE 0 ML IV ONE (16:37)
[2020-05-12] MEDS ORDERED: FUROSEMIDE 40 MG/4 ML VIAL IV ONE (16:45)
[2020-05-12] MEDS: cefTRIAXone SODIUM 2,000 MG in DEXTROSE 5% 50 ML IV SCH (20:51)
[2020-05-12] MEDS: MONTELUKAST SODIUM 10 MG TABLET PO SCH (20:59)
[2020-05-12] MEDS: REMDESIVIR 100 MG in SODIUM CHLORIDE 0.9% 230 ML IV SCH (21:41)
[2020-05-12] MEDS: SODIUM CHLORIDE 0.9% 10ML FLUSH IV SCH (22:55)
[2020-05-13] MEDS: BENZONATATE 100 MG CAPSULE PO SCH ×3 (04:04→21:11)
[2020-05-13] MEDS: ACETAMINOPHEN 325 MG TAB PO PRN ×2 (04:06→18:27)
[2020-05-13 07:46] LABS: Hematocrit (blood only) 41.8 % (37-47); Hemoglobin 13.9 g/dL (12.0-16.0); Mean Corpuscular Hemoglobin 30.3 pg (25-34); Mean Corpuscular Hgb Conc 33.3 g/dL (32-36); Mean Corpuscular Volume 91.3 fL (80-100); Mean Platelet Volume 10.9 fL (7.4-10.4); Platelet Count 318 K/uL (130-400); RDW Coefficient of Variation 13.5 % (11.5-14.5); RDW Standard Deviation 45.1 fL (36.4-46.3); Red Blood Count 4.58 M/uL (4.2-5.4); White Blood Count 11.56 K/uL (4.8-10.8)
[2020-05-13 07:57] LABS: BUN Creatinine Ratio 25.5 (10-20); Calcium 8.5 mg/dl (8.5-10.1); Creatinine Clr Calc Pharmacy 93.2 ml/min; Est GFR (African American) 110.5; Est GFR (Non-African American) 95.3; Potassium 3.5 mmol/L (3.5-5.1)
[2020-05-13] MEDS: dexAMETHasone 6 MG in SYRINGE 0 ML IV SCH (08:20)
[2020-05-13] MEDS: FLUTICASONE/VILANTEROL 200/25MCG 14 PUFFS/INHALER INH SCH (08:20)
[2020-05-13] MEDS: PANTOprazole 40 MG TAB PO SCH (08:21)
[2020-05-13] MEDS: ENOXAPARIN INJ 40 MG/0.4 ML SYR SQ SCH ×2 (08:22→21:11)
[2020-05-13] MEDS: DOXYCYCLINE HYCLATE 100 MG CAP PO SCH ×2 (08:22→21:10)
[2020-05-13] MEDS: FAMOTIDINE 20 MG TAB PO SCH (08:22)
[2020-05-13] MEDS: IBUPROFEN 200 MG TAB PO PRN (08:26)
--- NOTE | 2020-05-13 19:22 | Hospitalist Progress Note ---
Date of Service May 13, 2020 Assessment & Plan (1) Pneumonia due to 2019 novel coronavirus: (2) Hypoxia: Acute hypoxic respiratory failure secondary to COVID 19 pna This is a 59-year-old female who has significant past medical history of COPD/asthma, TAMMI on CPAP, seasonal allergies, anxiety, pulmonary nodule, history of respiratory failure requiring ventilation secondary to pneumonia who presents to ED secondary to shortness of breath and chest tightness x2 days. Currrently reports she is feeling better. On 4L NC. Afebrile. Leukocytosis in the setting of decadron therapy. C/w decadron 6 mg daily for a total of 10 days. C.W remdesevir /. Patient refused convalescent plasma therapy. Respiratorry drive protocl. c/W symbicort and albuterol. Lovenox for DVT prophylaxis. (3) COPD (chronic obstructive pulmonary disease): C/w bronchodilators. (4) Pulmonary nodule, right: repeat CT in 1 year, currently dominant nodule 5mm, previously 6mm hx of tobacco abuse (5) DVT prophylaxis: SQ Lovenox 40mg Q12hrs Disposition: med/surg Follow up: PCP Dr. Cota upon discharge Admission and Anticipated Discharge Date Admission Date: May 11, 2020 Subjective Patient is doing oK. Reports she is feeling better. SOB is improved. Does have some cough. Rest of the ROS is negative. Review of Systems Review of Systems: All systems reviewed & are unremarkable except as noted in HPI & below Physical Exam Physical Exam: General: A&Ox3 HENT: NCAT, MMM, EOMI Eyes: PERRLA Neck: Supple, normal range of motion CVS: normal rate and rhythm Resp: b/l coarse breath sounds Abdomen: Soft, nondistended and nontender Extremities: absence of any edema Neuro: face symmetric, strength grossly equal, no focal deficit Skin: warm and dry, no rashes/lesions/errythema MSK: normal ROM, no joint swelling/erythema Results & Data Results & Data ([facility]) Vital Signs (Past 12 Hours) Vital Signs Temp Pulse Resp BP Pulse Ox 05/13/20 15:58 36.9 C 87 18 128/83 91 05/13/20 07:58 36.5 C 63 18 121/79 95
[2020-05-13] MEDS: MONTELUKAST SODIUM 10 MG TABLET PO SCH (21:11)
[2020-05-13] MEDS: cefTRIAXone SODIUM 2,000 MG in DEXTROSE 5% 50 ML IV SCH (21:55)
[2020-05-13] MEDS: REMDESIVIR 100 MG in SODIUM CHLORIDE 0.9% 230 ML IV SCH (22:45)
[2020-05-14] MEDS: SODIUM CHLORIDE 0.9% 10ML FLUSH IV SCH ×2 (00:29→21:20)
[2020-05-14] MEDS: BENZONATATE 100 MG CAPSULE PO SCH ×3 (04:56→19:35)
[2020-05-14] MEDS: ACETAMINOPHEN 325 MG TAB PO PRN ×2 (04:58→19:37)
[2020-05-14 07:08] LABS: Hemoglobin 13.4 g/dL (12.0-16.0); Mean Corpuscular Hemoglobin 30.5 pg (25-34); Mean Corpuscular Hgb Conc 33.5 g/dL (32-36); Mean Corpuscular Volume 90.9 fL (80-100); Mean Platelet Volume 10.9 fL (7.4-10.4); Platelet Count 354 K/uL (130-400); RDW Coefficient of Variation 13.5 % (11.5-14.5); RDW Standard Deviation 45.2 fL (36.4-46.3); White Blood Count 9.58 K/uL (4.8-10.8)
[2020-05-14 07:39] LABS: Est GFR (African American) 118.8; Est GFR (Non-African American) 102.5; Potassium 3.5 mmol/L (3.5-5.1)
[2020-05-14 07:40] LABS: BUN Creatinine Ratio 29.2 (10-20); Calcium 7.9 mg/dl (8.5-10.1)
[2020-05-14] MEDS: IBUPROFEN 200 MG TAB PO PRN (08:01)
[2020-05-14] MEDS: PANTOprazole 40 MG TAB PO SCH (08:02)
[2020-05-14] MEDS: FLUTICASONE/VILANTEROL 200/25MCG 14 PUFFS/INHALER INH SCH (08:02)
[2020-05-14] MEDS: FAMOTIDINE 20 MG TAB PO SCH (08:02)
[2020-05-14] MEDS: DOXYCYCLINE HYCLATE 100 MG CAP PO SCH ×2 (08:03→19:36)
[2020-05-14] MEDS: dexAMETHasone 6 MG in SYRINGE 0 ML IV SCH (08:04)
[2020-05-14] MEDS: ENOXAPARIN INJ 40 MG/0.4 ML SYR SQ SCH ×2 (08:04→20:11)
[2020-05-14] MEDS: MONTELUKAST SODIUM 10 MG TABLET PO SCH (19:35)
[2020-05-14] MEDS: cefTRIAXone SODIUM 2,000 MG in DEXTROSE 5% 50 ML IV SCH (19:35)
[2020-05-14] MEDS: REMDESIVIR 100 MG in SODIUM CHLORIDE 0.9% 230 ML IV SCH (20:11)
--- NOTE | 2020-05-14 20:58 | Hospitalist Progress Note ---
Date of Service May 14, 2020 Assessment & Plan (1) Pneumonia due to 2019 novel coronavirus: (2) Hypoxia: Acute hypoxic respiratory failure secondary to COVID 19 pna This is a 59-year-old female who has significant past medical history of COPD/asthma, TAMMI on CPAP, seasonal allergies, anxiety, pulmonary nodule, history of respiratory failure requiring ventilation secondary to pneumonia who presents to ED secondary to shortness of breath and chest tightness x2 days. No new complaints. Continues to do okay. On 4L NC. Afebrile. Leukocytosis in the setting of decadron therapy. C/w decadron 6 mg daily for a total of 10 days. C.W remdesevir 07/03. Patient refused convalescent plasma therapy. Respiratorry drive protocl. c/W symbicort and albuterol. Will give 1 dose of IV Lasix 20 mg now. Monitor ins and outs along with daily weights. Will assist with inflammatory fluid retention to help with weaning off of the oxygen. Lovenox for DVT prophylaxis. (3) COPD (chronic obstructive pulmonary disease): C/w bronchodilators. (4) Pulmonary nodule, right: repeat CT in 1 year, currently dominant nodule 5mm, previously 6mm hx of tobacco abuse (5) DVT prophylaxis: SQ Lovenox 40mg Q12hrs Disposition: med/surg Follow up: PCP Dr. Cota upon discharge Admission and Anticipated Discharge Date Admission Date: May 11, 2020 Subjective Doig OK today and reports she is feeling better. Denies any SOB or any significa nt cough. Currently on 4L NC. Does not have any major complaints today. Hemodynamically doing fine. Have been using the incentive spirometer. Review of Systems Review of Systems: All systems reviewed & are unremarkable except as noted in HPI & below Physical Exam Physical Exam: General: A&Ox3 HENT: NCAT, MMM, EOMI Eyes: PERRLA Neck: Supple, normal range of motion CVS: normal rate and rhythm Resp: b/l coarse breath sounds Abdomen: Soft, nondistended and nontender Extremities: absence of any edema Neuro: face symmetric, strength grossly equal, no focal deficit Skin: warm and dry, no rashes/lesions/errythema MSK: normal ROM, no joint swelling/erythema Results & Data Results & Data ([facility]) Vital Signs (Past 12 Hours) Vital Signs Temp Pulse Resp BP Pulse Ox 05/14/20 15:04 36.5 C 73 16 117/72 93
[2020-05-15] MEDS: BENZONATATE 100 MG CAPSULE PO SCH ×3 (05:47→20:37)
[2020-05-15 07:08] LABS: Creatinine Clr Calc Pharmacy 102.5 ml/min; Est GFR (Non-African American) 98.4
[2020-05-15] MEDS: ACETAMINOPHEN 325 MG TAB PO PRN (07:24)
[2020-05-15] MEDS: dexAMETHasone 6 MG in SYRINGE 0 ML IV SCH (07:25)
[2020-05-15] MEDS: FLUTICASONE/VILANTEROL 200/25MCG 14 PUFFS/INHALER INH SCH (07:35)
[2020-05-15] MEDS: ENOXAPARIN INJ 40 MG/0.4 ML SYR SQ SCH ×2 (07:36→20:37)
[2020-05-15] MEDS: PANTOprazole 40 MG TAB PO SCH (07:36)
[2020-05-15] MEDS: DOXYCYCLINE HYCLATE 100 MG CAP PO SCH (07:37)
[2020-05-15] MEDS: FAMOTIDINE 20 MG TAB PO SCH (07:37)
[2020-05-15] MEDS ORDERED: FUROSEMIDE 20 MG in SYRINGE 0 ML IV ONE (11:45)
[2020-05-15] MEDS ORDERED: POTASSIUM CHLORIDE CRTAB 20 MEQ TABCR PO ONE (11:45)
--- NOTE | 2020-05-15 14:36 | Hospitalist Progress Note ---
Date of Service May 15, 2020 Assessment & Plan (1) Pneumonia due to 2019 novel coronavirus: (2) Hypoxia: Acute hypoxic respiratory failure secondary to COVID 19 pna This is a 59-year-old female who has significant past medical history of COPD/asthma, TAMMI on CPAP, seasonal allergies, anxiety, pulmonary nodule, history of respiratory failure requiring ventilation secondary to pneumonia who presents to ED secondary to shortness of breath and chest tightness x2 days. Currently patient is on 2 L of nasal cannula. Continues to do okay. Afebrile. Leukocytosis in the setting of decadron therapy. C/w decadron 6 mg daily for a total of 10 days. C.W remdesevir /. Patient refused convalescent plasma therapy. Respiratorry drive protocl. c/W symbicort and albuterol. Will discontinue ceftriaxone and doxycycline as procalcitonin has been negative. Patient has been afebrile. White count is within normal limit. Patient had adequate urine output from Lasix yesterday. Will give 1 dose of IV Lasix 20 mg today as well. Monitor ins and outs along with daily weights. Will assist with inflammatory fluid retention to help with weaning off of the oxygen. Lovenox for DVT prophylaxis. Will do noc Ox tonight and ambulatory pulse ox for possible discharge tomorrow. (3) COPD (chronic obstructive pulmonary disease): C/w bronchodilators. (4) Pulmonary nodule, right: repeat CT in 1 year, currently dominant nodule 5mm, previously 6mm hx of tobacco abuse (5) DVT prophylaxis: SQ Lovenox 40mg Q12hrs Disposition: med/surg Follow up: PCP Dr. Cota upon discharge Admission and Anticipated Discharge Date Admission Date: May 11, 2020 Subjective Patient is doing okay. No new issues. Overall feeling better. Currently down to 2 L of nasal cannula has any shortness of breath. Does have minimal cough. Vomiting. Denies any fever sore throat. Denies any abdominal pain, diarrhea or dysuria. Physical Exam Physical Exam: General: A&Ox3 HENT: NCAT, MMM, EOMI Eyes: PERRLA Neck: Supple, normal range of motion CVS: normal rate and rhythm Resp: b/l good breath sounds Abdomen: Soft, nondistended and nontender Extremities: absence of any edema Neuro: face symmetric, strength grossly equal, no focal deficit Skin: warm and dry, no rashes/lesions/errythema MSK: normal ROM, no joint swelling/erythema Results & Data Results & Data ([facility]) Vital Signs (Past 12 Hours) Vital Signs Temp Pulse Resp BP Pulse Ox 05/15/20 07:07 36.7 C 68 18 130/76 92
[2020-05-15] MEDS ORDERED: MELATONIN 3 MG TAB PO PRN (15:21)
[2020-05-15] MEDS: REMDESIVIR 100 MG in SODIUM CHLORIDE 0.9% 230 ML IV SCH (20:36)
[2020-05-15] MEDS: MONTELUKAST SODIUM 10 MG TABLET PO SCH (20:37)
[2020-05-15] MEDS: SODIUM CHLORIDE 0.9% 10ML FLUSH IV SCH (20:37)
[2020-05-16] MEDS: ACETAMINOPHEN 325 MG TAB PO PRN ×2 (00:47→09:10)
[2020-05-16] MEDS: BENZONATATE 100 MG CAPSULE PO SCH ×2 (04:46→11:11)
[2020-05-16 06:50] LABS: Creatinine Clr Calc Pharmacy 99.2 ml/min; Est GFR (African American) 112.8; Est GFR (Non-African American) 97.3
[2020-05-16] MEDS: FLUTICASONE/VILANTEROL 200/25MCG 14 PUFFS/INHALER INH SCH (07:43)
[2020-05-16] MEDS: PANTOprazole 40 MG TAB PO SCH (07:44)
[2020-05-16] MEDS: dexAMETHasone 6 MG in SYRINGE 0 ML IV SCH (07:44)
[2020-05-16] MEDS: FAMOTIDINE 20 MG TAB PO SCH (07:44)
[2020-05-16] MEDS: ENOXAPARIN INJ 40 MG/0.4 ML SYR SQ SCH (07:45)
[2020-05-16 09:26] LABS: Basophils # (auto) 0.04 K/uL (0-0.2); Basophils % (auto) 0.3 %; Eosinophils % (auto) 4.2 %; Hematocrit (blood only) 40.5 % (37-47); Hemoglobin 13.7 g/dL (12.0-16.0); Immature Granulocytes # (auto) 0.21 K/uL (0.00-0.02); Immature Granulocytes % (auto) 1.8 %; Lymphocytes # (auto) 3.08 K/uL (1.2-3.4); Lymphocytes % (auto) 26.1 %; Mean Corpuscular Hemoglobin 30.4 pg (25-34); Mean Corpuscular Hgb Conc 33.8 g/dL (32-36); Mean Corpuscular Volume 89.8 fL (80-100); Mean Platelet Volume 10.8 fL (7.4-10.4); Monocytes # (auto) 1.38 K/uL (0.11-0.59); Monocytes % (auto) 11.7 %; Neutrophils # (auto) 6.58 K/uL (1.4-6.5); Neutrophils % (auto) 55.9 %; Platelet Count 403 K/uL (130-400); RDW Coefficient of Variation 13.4 % (11.5-14.5); Red Blood Count 4.51 M/uL (4.2-5.4); White Blood Count 11.79 K/uL (4.8-10.8)
[2020-05-16 09:46] LABS: Albumin Level 2.8 gm/dl (3.4-5.0); BUN Creatinine Ratio 24.7 (10-20); Calcium 8.8 mg/dl (8.5-10.1); Creatinine Clr Calc Pharmacy 96.1 ml/min; Est GFR (African American) 111.6; Est GFR (Non-African American) 96.3; Potassium 3.9 mmol/L (3.5-5.1)
[2020-05-16 09:48] LABS: Albumin Globulin Ratio 0.7 (0.9-2); Bilirubin,Total 0.3 mg/dl (0.2-1); Globulin 3.8 gm/dl (2.5-4.0); Total Protein 6.6 gm/dl (6.4-8.2)
--- NOTE | 2020-05-16 14:00 | Discharge Summary ---
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 Patient tested positive for novel coronavirus on 04/29/2020. Unsure how she contracted virus as, "I have been taking all the precautions." Sx started around 04/24/20. For the past 3 weeks she has been experiencing symptoms of fatigue, sinus congestion, persistent headache, nausea and diarrhea. Yesterday she developed dry cough, increasingly shortness of breath and chest tightness. Throughout illness she has been compliant with Symbicort. Just yesterday she started using her Ventolin at the recommendation of PCP. She denies any fever, chills, sweats, lightheadedness, dizziness, syncope, chest pain, palpitations, hemoptysis, emesis, abdominal pain, dysuria, increased urgency or frequency with urination, melena or hematochezia. Overall her appetite has been, "so-so." Denies loss of taste or smell. Her cough is dry. She has been using Mucinex [id number] for cough and APAP/ibuprofen for headache. She does have pulse ox at home and has noticed her o2 sats in high 80s, low 90s today. Her lowest reading was 85%. She does have TAMMI but has been intolerant to CPAP due to sinus congestion and malfunction of equipment. In ED chest x-ray and chest CTA revealed multifocal pneumonia. She was started on IV dexamethasone 6 mg. She is requiring 2 L of O2 via NC. Admission Exam Per Admitting Provider Constitutional: WD/WN, vitals as above Eyes: PERRL, conjunctivae normal, anicteric sclerae ENMT: external ear and nose normal, oropharynx normal Neck: trachea midline, no thyromegaly normal visual inspection Respiratory: normal respiratory effort, lungs clear to auscultation no respiratory distress and no labored breathing Auscultation: + rhonchi (mild); no crackles and no rales requiring 2L of suppl. O2 Cardiovascular: RRR, no murmur, no edema Chest (Breasts): Chest: normal inspection of chest Gastrointestinal (Abdomen): Inspection/Auscultation: abdomen normal to inspection and normal bowel sounds; abdomen not distended and no abdominal edema Percussion/Palpation: abdomen soft; abdomen nontender, no guarding and abdomen not rigid Musculoskeletal: no cyanosis or clubbing, extremities motor strength 5/5 Head/Neck/Chest: normocephalic, head atraumatic and neck supple Skin: no rashes, warm and dry Neurologic: PERRL, EOMI, accommodation nl, no face palsy, no dysarthria Psychiatric: A+Ox3, euthymic affect Genitourinary: no CVA tenderness Lymphatic: no lymphedema Principal Diagnosis COVID-19 Discharge Exam General: A&Ox3 HENT: NCAT, MMM, EOMI Eyes: PERRLA Neck: Supple, normal range of motion CVS: normal rate and rhythm Resp: b/l good breath sounds Abdomen: Soft, nondistended and nontender Extremities: absence of any edema Neuro: face symmetric, strength grossly equal, no focal deficit Skin: warm and dry, no rashes/lesions/errythema MSK: normal ROM, no joint swelling/erythema Discharge Data Allergies Allergy/AdvReac Type Severity Reaction Status Date / Time Sulfa (Sulfonamide Allergy Mild hives Verified 05/11/20 15:23 Antibiotics) Consultations 05/11/20 17:23 ED Decision to Admit Stat Ordered Studies 05/11/20 14:28 CT angio chest PE protocol Stat Hospital Course (1) Pneumonia due to 2019 novel coronavirus: (2) Hypoxia: Acute hypoxic respiratory failure secondary to COVID 19 pna This is a 59-year-old female who has significant past medical history of COPD/asthma, TAMMI on CPAP, seasonal allergies, anxiety, pulmonary nodule, history of respiratory failure requiring ventilation secondary to pneumonia who presents to ED secondary to shortness of breath and chest tightness x2 days. Patient completed 5 days of therapy with remdesivir. Patient also received Decadron and was discharged with 5 days of Decadron therapy. Patient refused convalescent plasma therapy on admission. Patient was diuresed as well during this admission to help wean off the oxygen. NOC ox was obtained and patient was hypoxic overnight. On ambulatory pulse ox patient did not require any oxygen. Start with 2 L of nasal cannula for nighttime use.. (3) COPD (chronic obstructive pulmonary disease): C/w bronchodilators. (4) Pulmonary nodule, right: repeat CT in 1 year, currently dominant nodule 5mm, previously 6mm hx of tobacco abuse Total Time Total Time Spent Total Time Spent (In Minutes): 35 Discharge Plan Discharge Items Patient Disposition: Home - Self-Care Reason For Visit: COVID PNEUMONIA Discharge Diagnosis: COVID Activity: Resume your previous activity Non-emergency contact: Primary Care Provider Call non-emergency contact if: your symptoms worsen and your temperature is above 101 Follow-up/Referrals: Kyara Cota DO [Primary Care Provider] - 05/19/20 6:20 pm ([facility] F[facility]U) Addtl Attending Provider Instructions: Follow-up with your primary care physician within the next 3 to 5 days. Use 2 L of nasal cannula oxygen at nighttime. You had incidental finding of few subcentimeter pulmonary nodules. These follow-up with your primary care physician with repeat CT in 1 year. Your test for COVID-19 came back as positive, which means you are infected with the novel coronavirus. We need to continue the following important precautions: Quarantine yourself in your home until: you have had no fever for at least 24 hours (that is 1 full day of no fever without the use of medicine that reduces fevers) AND other symptoms have improved (for example, when your cough or shortness of breath have improved) AND at least 14 days have passed since your symptoms first appeared. If you live with others, isolate yourself to a single room away from them and avoid any contact during the quarantine time. Wash your hands frequently and cover your cough. If you were in close contact with any family members, roommates or friends in the 2 days before your cold/flu symptoms started, notify them that you tested positive for COVID-19. Tell them that if they have cold/flu symptoms, they should call [email or web address] COVID-19 hotline at [phone]. Treat your symptoms with [id number] medications, such as Tylenol. If you develop new symptoms or your symptoms are worsening, call [email or web address] hotline at 118-818-7610 or your physician for advice. If your symptoms become severe, go to the nearest ER. If you are alone and/or in distress, call 911. If you are a [employer] staff member or employee, when you receive your result, please call [employer] between 7 a.m. and 4 p.m. at [phone]. Notify them of your test results and for instructions on returning to work after your quarantine period. Pending Studies at Discharge: No Stand-Alone Forms: My [facility], Smoking Cessation Medications and DC Order Prescriptions: New dexamethasone [Decadron] 6 mg tablet 6 mg PO DAILY Qty: 5 RF: 0 (DME) Oxygen Home Liters Per Minute 2 ea .Route .night Qty: 1 RF: 0 Continued montelukast 10 mg tablet 10 mg PO QPM RF: 0 albuterol sulfate 90 mcg/actuation Hfa Aerosol Inhaler 2 puff INHALATION QID PRN (Reason: Shortness Of Breath Or Wheezing) RF: 0 budesonide-formoterol [Symbicort] 160-4.5 mcg/actuation HFA aerosol inhaler 2 puff INHALATION AMPM RF: 0 lorazepam 0.5 mg tablet 0.5 mg PO TID PRN (Reason: Anxiety) RF: 0 famotidine 10 mg Tablet 20 mg PO DAILY RF: 0 Discharge Orders: Discharge Order (Routine); Ordered 05/16/20 Ordered By: Lyla Sharp/Other Patient Handouts: COVID-19 Home Care Admission Data Admit Date/Time: 05/11/20 17:31 Attending Provider: Lyla Kelly Admit Provider: Haja Machado Primary Care Provider: Kyara Cota Other Providers: Haja Machado Other Interventions: Discharge Summary Assessment (RN) Last Done: 05/16/20 13:35
== END 2020-05-16 14:20 | disposition home or self-care (01) | DRG 177 ==
LOC: ED 13:15 → 3E 17:31 → SUATTDRO 17:31 → 3E 18:21